=== PATIENT | female | born 1940 | race Hispanic/Latino ===

== ENCOUNTER → 2016-12-28 | Outpatient (REF) | payer OTHER | LOC: M LAB REF 17:11 | PROVIDERS: ATTEND Advanced Practice Midwife | DX: Z12.72 Encounter for screening for malignant neoplasm of vagina (principal) ==

== ENCOUNTER → 2017-04-27 | Outpatient (REF) | payer OTHER ==
[~2017-04-27] MED LIST: METF500T PO
[2017-04-27 13:06] LABS: ALBUMIN 3.6 GM/DL (3.2-5.2); ALKALINE PHOSPHATASE 70 U/L (45-117); ALT/SGPT 29 U/L (12-78); ANION GAP 5 MEQ/L (8-16); AST/SGOT 22 U/L (15-37); BILIRUBIN,TOTAL 0.5 MG/DL (0.2-1.0); BLOOD UREA NITROGEN 19 MG/DL (7-18); CALCIUM LEVEL 8.5 MG/DL (8.8-10.2); CARBON DIOXIDE LEVEL 30 MEQ/L (21-32); CHLORIDE LEVEL 104 MEQ/L (98-107); CHOLESTEROL LEVEL 177 MG/DL (<200); CREATININE FOR GFR 0.49 MG/DL (0.55-1.02); GLOMERULAR FILTRATION RATE > 60.0 (>39); GLUCOSE, FASTING 110 MG/DL (83-110); SODIUM LEVEL 139 MEQ/L (136-145); TOTAL PROTEIN 7.6 GM/DL (6.4-8.2); TRIGLYCERIDES LEVEL 130 MG/DL (<150)
== END ==
LOC: M LABDRAW1 11:28
PROVIDERS: ATTEND Nurse Practitioner Family
DX: E11.9 Type 2 diabetes mellitus without complications (principal); E55.9 Vitamin D deficiency, unspecified; E78.00 Pure hypercholesterolemia, unspecified

== ENCOUNTER 2017-05-06 11:33 | Emergency (ER) | payer OTHER ==
[~2017-05-06] VITALS: Ht 152.4 cm; Wt 69.4 kg
[2017-05-06] MEDS ORDERED: METF500T PO (12:03)
[2017-05-06 13:12] LABS: BASO % 0.4 % (0.0-1.0); EOS # 0.1 K/mm3 (0.0-0.50); EOS % 1.5 % (0.0-3.0); LARGE UNSTAINED CELL # 0.1 K/mm3 (0.0-0.4); LARGE UNSTAINED CELL % 3.1 % (0.0-4.0); LYMPH # 1.2 K/mm3 (1.5-4.5); LYMPH % 28.1 % (24.0-44.0); MEAN CORPUSCULAR HEMOGLOBIN 30.5 pg (27.0-33.0); MEAN CORPUSCULAR VOLUME 92.4 fl (80.0-96.0); MONO # 0.2 K/mm3 (0.0-0.8); NEUTROPHILS # 2.4 K/mm3 (1.8-7.7); NEUTROPHILS % 61.9 % (36.0-66.0); PLATELET COUNT, AUTOMATED 179 k/mm3 (150-450); RED CELL DISTRIBUTION WIDTH 13.2 % (11.5-14.5); WHITE BLOOD COUNT 3.9 K/mm3 (4.0-10.0)
[2017-05-06 13:31] LABS: ANION GAP 4 MEQ/L (8-16); BLOOD UREA NITROGEN 14 MG/DL (7-18); CARBON DIOXIDE LEVEL 31 MEQ/L (21-32); CHLORIDE LEVEL 102 MEQ/L (98-107); CREATININE FOR GFR 0.54 MG/DL (0.55-1.02); GLOMERULAR FILTRATION RATE > 60.0 (>39); GLUCOSE, FASTING 124 MG/DL (83-110); POTASSIUM SERUM 3.9 MEQ/L (3.5-5.1); SODIUM LEVEL 137 MEQ/L (136-145)
[2017-05-06 13:32] LABS: ALT/SGPT 30 U/L (12-78); AST/SGOT 20 U/L (15-37); CALCIUM LEVEL 8.6 MG/DL (8.8-10.2)
--- NOTE | 2017-05-06 13:34 | REP ---
CT Head without contrast HISTORY: Vertigo COMPARISON: None There is no intraparenchymal hemorrhage, acute infarct, mass or midline shift. The ventricular system and cortical sulci are dilated consistent with minimal volume loss. There is no extra cerebral collection. There is no fracture. The visualized sinuses are clear. IMPRESSION: Minimal volume loss. Signed by Cedrick Lawson MD 05/06/2017 01:27 P
[2017-05-06 13:43] LABS: ALKALINE PHOSPHATASE 69 U/L (45-117)
[2017-05-06 13:44] LABS: ALBUMIN 3.4 GM/DL (3.2-5.2); ALBUMIN/GLOBULIN RATIO 0.79 (1.00-1.93); BILIRUBIN,TOTAL 0.5 MG/DL (0.2-1.0); MAGNESIUM LEVEL 1.9 MG/DL (1.8-2.4); T UPTAKE 34 % (30-39); THYROXINE (T4) 8.8 UG/DL (4.5-12.0); TOTAL PROTEIN 7.7 GM/DL (6.4-8.2)
--- NOTE | 2017-05-06 13:44 | REP ---
LEFT SHOULDER, THREE VIEWS: HISTORY: Pain. COMPARISON: 02/25/2016. There is no acute fracture or dislocation. There is narrowing of the joint spaces. IMPRESSION: Degenerative change as described above. Signed by Cedrick Lawson MD 05/06/2017 01:46 P
[2017-05-06 15:10] VITALS: BP 147/71
--- NOTE | 2017-05-07 11:54 | ECGEPIP ---
Stationary ECG Study [facility] - ED Test Date: 2017-05-06 Pat Name: ALEXEY MUÑIZ Department: Room: - Gender: F Energy Specialist: kuldeep : 1940 Requested By: SONIA SIMPSON Order Number: [id number] Reading MD: Joyce Garcia Measurements Intervals [place] Rate: 79 P: 61 HI: 190 QRS: 5 QRSD: 105 T: 25 QT: 372 QTc: 427 Interpretive Statements SINUS RHYTHM NSTTW ABNORMALITY PRWP NO PRIOR FOR COMPARISON Electronically Signed On 05-07-2017 11:54:14 EDT by Joyce Garcia
== END 2017-05-06 15:30 | disposition home or self-care (01) ==
LOC: M ED 13:09
DX: R41.0 Disorientation, unspecified (principal); I10 Essential (primary) hypertension; E11.9 Type 2 diabetes mellitus without complications; Z88.0 Allergy status to penicillin; Z79.899 Other long term (current) drug therapy

== ENCOUNTER → 2017-09-14 | Outpatient (REF) | payer OTHER ==
[~2017-09-14] MED LIST changes: -METF500T PO; +METF500T13 PO
[2017-09-14 14:51] LABS: ALBUMIN 3.6 GM/DL (3.2-5.2); ALKALINE PHOSPHATASE 71 U/L (45-117); ALT/SGPT 28 U/L (12-78); ANION GAP 4 MEQ/L (8-16); AST/SGOT 18 U/L (15-37); BILIRUBIN,TOTAL 0.5 MG/DL (0.2-1.0); BLOOD UREA NITROGEN 18 MG/DL (7-18); CALCIUM LEVEL 9.2 MG/DL (8.8-10.2); CARBON DIOXIDE LEVEL 32 MEQ/L (21-32); CHLORIDE LEVEL 105 MEQ/L (98-107); CHOLESTEROL LEVEL 137 MG/DL (<200); CREATININE FOR GFR 0.47 MG/DL (0.55-1.02); GLOMERULAR FILTRATION RATE > 60.0 (>39); GLUCOSE, FASTING 124 MG/DL (83-110); POTASSIUM SERUM 4.3 MEQ/L (3.5-5.1); SODIUM LEVEL 141 MEQ/L (136-145); TOTAL PROTEIN 7.6 GM/DL (6.4-8.2); TRIGLYCERIDES LEVEL 130 MG/DL (<150)
== END ==
LOC: M LABDRAW1 10:51
PROVIDERS: ATTEND Nurse Practitioner Family
DX: E11.9 Type 2 diabetes mellitus without complications (principal)

== ENCOUNTER → 2017-09-21 | Outpatient (CLI) | payer OTHER ==
--- NOTE | 2017-09-21 10:31 | REP ---
ULTRASOUND LEFT UPPER ARM: Real-time sonographic evaluation of the left upper arm performed in the region of the palpable abnormality. There is a hyperechoic area measuring 3 mm in diameter in the superficial soft tissues which may represent a small lipoma. There is no other evidence of cystic or solid nodule in this region. Signed by Poncho Bell MD 09/22/2017 04:23 P
== END ==
LOC: M RAD 09:40
PROVIDERS: ATTEND Nurse Practitioner Family
DX: D17.22 Benign lipomatous neoplasm of skin and subcutaneous tissue of left arm (principal)

== ENCOUNTER → 2017-12-14 | Outpatient (REF) | payer OTHER ==
[2017-12-14 14:59] LABS: ESTIMATED AVERAGE GLUCOSE 160 MG/DL (60-110); HEMOGLOBIN A1c 7.2 %
== END ==
LOC: M LAB REF 13:25
DX: E11.9 Type 2 diabetes mellitus without complications (principal)

== ENCOUNTER → 2017-12-16 | Outpatient (REF) | payer OTHER, MEDICAID ==
[2017-12-16 14:20] LABS: MALB URINE SIEMENS 7.9 MG/L; MAU/CREAT RATIO 5.6 MCG/MG (0.0-30.0)
== END ==
LOC: M LAB REF 13:06
DX: E11.9 Type 2 diabetes mellitus without complications (principal)
CPT/HCPCS: 82043

== ENCOUNTER 2019-02-26 13:06 | Emergency (ER) | payer MEDICARE, MEDICAID ==
[~2019-02-26] VITALS: Ht 154.9 cm; Wt 70.5 kg
[2019-02-26] MEDS ORDERED: METF-839 (13:15)
[2019-02-26] MEDS ORDERED: ATOR1TAB19 (13:15)
[2019-02-26] MEDS ORDERED: AMLO5TAB6 (13:15)
[2019-02-26] MEDS ORDERED: NS 1,000 ML IV ONE (13:45)
[2019-02-26 13:46] LABS: BASO % 0.4 % (0.0-1.0); EOS # 0.1 10^3/uL (0.0-0.50); EOS % 1.3 % (0.0-3.0); HEMOGLOBIN 13.7 g/dl (12.0-15.5); LYMPH # 1.5 10^3/uL (1.5-4.5); LYMPH % 33.9 % (24.0-44.0); MEAN CORPUSCULAR HEMOGLOBIN 29.9 pg (27.0-33.0); MEAN CORPUSCULAR HGB CONC 32.6 g/dl (32.0-36.5); MEAN CORPUSCULAR VOLUME 91.7 fl (80.0-96.0); MONO # 0.4 10^3/uL (0.0-0.8); NEUTROPHILS # 2.5 10^3/uL (1.8-7.7); NEUTROPHILS % 56.2 % (36.0-66.0); PLATELET COUNT, AUTOMATED 207 10^3/uL (150-450); RED BLOOD COUNT 4.58 10^6/uL (4.00-5.40); WHITE BLOOD COUNT 4.5 10^3/uL (4.0-10.0)
[2019-02-26 13:56] LABS: BLOOD UREA NITROGEN 15 MG/DL (7-18); C REACTIVE PROTEIN QUANTITATIV 0.52 MG/DL (0.00-0.30); CALCIUM LEVEL 9.1 MG/DL (8.8-10.2); CARBON DIOXIDE LEVEL 30 MEQ/L (21-32); CHLORIDE LEVEL 103 MEQ/L (98-107); CREATININE FOR GFR 0.66 MG/DL (0.55-1.30); GLOMERULAR FILTRATION RATE > 60.0 (>39); GLUCOSE, FASTING 168 MG/DL (70-100); POTASSIUM SERUM 4.1 MEQ/L (3.5-5.1); SODIUM LEVEL 138 MEQ/L (136-145)
--- NOTE | 2019-02-26 14:01 | REP ---
Clinical: Headache. Comparison: 05/06/2017 . Findings: Age-related atrophy and microvascular ischemic changes are appreciated. The ventricles and sulci are symmetric. Bell-white differentiation is maintained. There is no evidence for acute intracranial hemorrhage, mass/mass effect, pathology or infarction. No extra-axial fluid collection. Calvarium is intact. Paranasal sinuses and mastoid air cells are clear. Impression: Age related atrophy and microvascular ischemic changes. No acute intracranial hemorrhage, infarction, or mass/mass effect. Electronically Signed by Louie Robles MD 02/26/2019 01:53 P
[2019-02-26 14:05] LABS: ERYTHROCYTE SEDIMENTATION RATE 40 mm/hr (0-30)
--- NOTE | 2019-02-26 14:08 | REP ---
Clinical: Acute chest pain . Comparison: 02/27/2016 . Technique: PA and lateral. Findings: The mediastinum and cardiac silhouette are normal. The lung reyes demonstrate chronic stable changes without acute consolidation, effusion, or pneumothorax. The skeletal structures are intact and normal. Impression: 1. No acute cardiopulmonary process. Electronically Signed by Louie Robles MD 02/26/2019 02:00 P
[2019-02-26 14:28] LABS: INFLUENZA A AMPLIFICATION NEGATIVE (NEGATIVE); INFLUENZA B AMPLIFICATION NEGATIVE (NEGATIVE)
[2019-02-26] MEDS ORDERED: KETOROLAC 30 MG/ML VIAL (J1885) IV ONE (15:00)
[2019-02-26] MEDS ORDERED: CYCLOBENZAPRINE 5MG TABLET PO ONE (16:30)
[2019-02-26] MEDS ORDERED: CYCL5TAB PO (16:30)
[2019-02-26] MEDS ORDERED: IBUP-1114 PO (16:30)
[2019-02-26 16:36] VITALS: BP 168/88
--- NOTE | 2019-02-26 19:14 | ECGEPIP ---
Stationary ECG Study [facility] - ED Test Date: 2019-02-26 Pat Name: ALEXEY MUÑIZ Department: Room: - Gender: F Narcotics Agent: MK : 1940 Requested By: Anjana Heart Order Number: [id number] Reading MD: Anjana Heart Measurements Intervals [facility] Rate: 105 P: 59 DC: 160 QRS: 0 QRSD: 100 T: 35 QT: 330 QTc: 437 Interpretive Statements SINUS TACHYCARDIA ANTEROSEPTAL PR AGE UNDETERMINED POSSIBLE INFERIOR WALL PR AGE UNDETERMINED NONSPECIFIC ST T WAVE CHANGES ABNORMAL RHYTHM ECG CW 05/06/[address] T WAVE CHANGES Electronically Signed On 02-26-2019 19:14:12 EDT by Anjana Heart
== END 2019-02-26 16:45 | disposition home or self-care (01) ==
LOC: M ED 13:06
DX: M79.10 Myalgia, unspecified site (principal); I45.10 Unspecified right bundle-branch block; R94.31 Abnormal electrocardiogram [ECG] [EKG]; E11.9 Type 2 diabetes mellitus without complications; I10 Essential (primary) hypertension; Z88.0 Allergy status to penicillin; Z79.84 Long term (current) use of oral hypoglycemic drugs; Z79.899 Other long term (current) drug therapy
CPT/HCPCS: 36415; 70450; 71046; 80048; 81001; 85025; 85652; 86140; 87486; 87502; 87581; 87633; 87798; 93005; 96374; 99285; J1885

== ENCOUNTER → 2019-03-30 | Outpatient (REF) | payer MEDICARE, MEDICAID ==
[~2019-03-30] MED LIST changes: +AMLO5TAB6; +ATOR1TAB19; +CYCL5TAB PO; +IBUP-1114 PO; +METF-839
[2019-03-30 13:10] LABS: BASO % 0.4 % (0.0-1.0); EOS # 0.1 10^3/uL (0.0-0.50); HEMATOCRIT 42.5 % (36.0-47.0); HEMOGLOBIN 13.5 g/dl (12.0-15.5); LYMPH # 1.7 10^3/uL (1.5-4.5); LYMPH % 37.2 % (24.0-44.0); MEAN CORPUSCULAR HEMOGLOBIN 29.9 pg (27.0-33.0); MEAN CORPUSCULAR HGB CONC 31.8 g/dl (32.0-36.5); MEAN CORPUSCULAR VOLUME 94.2 fl (80.0-96.0); MONO # 0.4 10^3/uL (0.0-0.8); NEUTROPHILS # 2.4 10^3/uL (1.8-7.7); NEUTROPHILS % 52.2 % (36.0-66.0); PLATELET COUNT, AUTOMATED 225 10^3/uL (150-450); RED BLOOD COUNT 4.51 10^6/uL (4.00-5.40); WHITE BLOOD COUNT 4.5 10^3/uL (4.0-10.0)
[2019-03-30 13:40] LABS: ALBUMIN 3.9 GM/DL (3.2-5.2); ALT/SGPT 26 U/L (12-78); BILIRUBIN,TOTAL 0.8 MG/DL (0.2-1.0); BLOOD UREA NITROGEN 17 MG/DL (7-18); CALCIUM LEVEL 8.8 MG/DL (8.8-10.2); CARBON DIOXIDE LEVEL 31 MEQ/L (21-32); CHLORIDE LEVEL 104 MEQ/L (98-107); CHOLESTEROL LEVEL 167 MG/DL (<200); CHOLESTEROL RISK RATIO 4.073 (<5); CREATININE FOR GFR 0.57 MG/DL (0.55-1.30); GLOMERULAR FILTRATION RATE > 60.0 (>39); GLUCOSE, FASTING 150 MG/DL (70-100); HDL CHOLESTEROL 41 MG/DL (>40); LDL CHOLESTEROL 93 MG/DL (<100); NON-HDL-C 126 MG/DL; POTASSIUM SERUM 4.1 MEQ/L (3.5-5.1); SODIUM LEVEL 139 MEQ/L (136-145); TOTAL PROTEIN 7.9 GM/DL (6.4-8.2); TRIGLYCERIDES LEVEL 165 MG/DL (<150)
[2019-03-30 13:53] LABS: TOTAL 25(OH) VITAMIN D 22.9 NG/ML (30.0-100.0)
[2019-03-30 14:14] LABS: HEMOGLOBIN A1c 7.6 %
[2019-04-02 00:07] LABS: Lyme Disease IgG/IgM Antibodie <0.91 ISR (0.00-0.90); Lyme Disease IgM Ab Quantitati <0.80 index (0.00-0.79)
== END ==
LOC: M LAB REF 12:53
PROVIDERS: ATTEND Family Medicine
DX: Z13.228 Encounter for screening for other metabolic disorders (principal); E07.9 Disorder of thyroid, unspecified; E78.00 Pure hypercholesterolemia, unspecified; R73.01 Impaired fasting glucose

== ENCOUNTER → 2019-04-25 | Outpatient (CLI) | payer MEDICARE, MEDICAID ==
--- NOTE | 2019-04-25 13:44 | REP ---
Clinical : Acute pelvic pain. Technique: Transabdominal pelvic ultrasound using curved array transducer. Findings: Bladder is under distended but grossly normal and currently measuring 6.3 x 4.0 x 3.1 cm. The patient is known to be status post hysterectomy. No pelvic fluid or mass lesion identified. Impression: Evidence for prior hysterectomy and oophorectomy. No pelvic fluid or mass lesion appreciated. Electronically Signed by Louie Robles MD 04/25/2019 01:35 P
== END ==
LOC: M RAD 09:16
PROVIDERS: ATTEND Family Medicine
DX: R10.2 Pelvic and perineal pain (principal); Z90.710 Acquired absence of both cervix and uterus

== ENCOUNTER → 2019-07-03 | Outpatient (REF) | payer MEDICARE, MEDICAID ==
[2019-07-03 13:18] LABS: APPEARANCE, URINE HAZY (CLEAR); BACTERIA, URINE AUTO 2+ (NEGATIVE); BILIRUBIN, URINE AUTO NEGATIVE (NEGATIVE); BLOOD, URINE BLOOD 2+ (NEGATIVE); COLOR, URINE YELLOW (YELLOW); GLUCOSE, URINE (UA) AUTO NEGATIVE (NEGATIVE); KETONE, URINE AUTO NEGATIVE (NEGATIVE); LEUKOCYTE ESTERASE, URINE AUTO 3+ (NEGATIVE); NITRITE, URINE AUTO NEGATIVE (NEGATIVE); PROTEIN, URINE AUTO 1+ mg/dL (NEGATIVE); RBC, URINE AUTO 40 /HPF (0-3); SPECIFIC GRAVITY URINE AUTO 1.014 (1.002-1.035); SQUAMOUS EPITHELIAL CELL UR AU 6 /HPF (0-6); TRANSITIONAL EPITHELIAL AUTO 1 /HPF; UROBILINOGEN, URINE AUTO 0.2 mg/dL (0.0-2.0); WBC, URINE AUTO 161 /HPF (0-3)
[2019-07-03 16:48] LABS: BASO % 0.5 % (0.0-1.0); EOS # 0.2 10^3/uL (0.0-0.50); HEMATOCRIT 42.7 % (36.0-47.0); HEMOGLOBIN 13.7 g/dl (12.0-15.5); LYMPH # 1.8 10^3/uL (1.5-4.5); LYMPH % 32.1 % (24.0-44.0); MEAN CORPUSCULAR HEMOGLOBIN 30.3 pg (27.0-33.0); MEAN CORPUSCULAR HGB CONC 32.1 g/dl (32.0-36.5); MEAN CORPUSCULAR VOLUME 94.5 fl (80.0-96.0); MONO # 0.4 10^3/uL (0.0-0.8); MONO % 7.5 % (0.0-5.0); NEUTROPHILS # 3.2 10^3/uL (1.8-7.7); NEUTROPHILS % 56.5 % (36.0-66.0); PLATELET COUNT, AUTOMATED 267 10^3/uL (150-450); RED BLOOD COUNT 4.52 10^6/uL (4.00-5.40); WHITE BLOOD COUNT 5.6 10^3/uL (4.0-10.0)
[2019-07-03 17:00] LABS: ALBUMIN 3.7 GM/DL (3.2-5.2); ALT/SGPT 47 U/L (12-78); BILIRUBIN,TOTAL 0.5 MG/DL (0.2-1.0); BLOOD UREA NITROGEN 14 MG/DL (7-18); CALCIUM LEVEL 9.5 MG/DL (8.8-10.2); CARBON DIOXIDE LEVEL 32 MEQ/L (21-32); CHLORIDE LEVEL 104 MEQ/L (98-107); CHOLESTEROL LEVEL 138 MG/DL (<200); CHOLESTEROL RISK RATIO 3.538 (<5); CREATININE FOR GFR 0.55 MG/DL (0.55-1.30); FREE T4 1.01 NG/DL (0.76-1.46); GLOMERULAR FILTRATION RATE > 60.0 (>39); GLUCOSE, FASTING 106 MG/DL (70-100); HDL CHOLESTEROL 39 MG/DL (>40); LDL CHOLESTEROL 69 MG/DL (<100); NON-HDL-C 99 MG/DL; POTASSIUM SERUM 4.2 MEQ/L (3.5-5.1); SODIUM LEVEL 139 MEQ/L (136-145); TRIGLYCERIDES LEVEL 150 MG/DL (<150)
[2019-07-03 17:02] LABS: TOTAL 25(OH) VITAMIN D 25.3 NG/ML (30.0-100.0)
[2019-07-05 14:22] LABS: Lyme Disease IgG/IgM Antibodie <0.91 ISR (0.00-0.90); Lyme Disease IgM Ab Quantitati <0.80 index (0.00-0.79)
== END ==
LOC: M LAB REF 12:51
PROVIDERS: ATTEND Family Medicine
DX: Z13.228 Encounter for screening for other metabolic disorders (principal)

== ENCOUNTER → 2019-07-10 | Outpatient (REF) | payer MEDICARE, MEDICAID ==
[2019-07-10 18:19] LABS: APPEARANCE, URINE TURBID (CLEAR); BACTERIA, URINE AUTO 3+ (NEGATIVE); BILIRUBIN, URINE AUTO NEGATIVE (NEGATIVE); BLOOD, URINE BLOOD 2+ (NEGATIVE); COLOR, URINE AMBER (YELLOW); GLUCOSE, URINE (UA) AUTO NEGATIVE (NEGATIVE); KETONE, URINE AUTO NEGATIVE (NEGATIVE); LEUKOCYTE ESTERASE, URINE AUTO 3+ (NEGATIVE); MUCUS, URINE MODERATE (NEGATIVE); NITRITE, URINE AUTO NEGATIVE (NEGATIVE); PROTEIN, URINE AUTO NEGATIVE (NEGATIVE); RBC, URINE AUTO 18 /HPF (0-3); SPECIFIC GRAVITY URINE AUTO 1.019 (1.002-1.035); SQUAMOUS EPITHELIAL CELL UR AU 1 /HPF (0-6); UROBILINOGEN, URINE AUTO 0.2 mg/dL (0.0-2.0); WBC, URINE AUTO 86 /HPF (0-3)
== END ==
LOC: M LAB REF 17:03
PROVIDERS: ATTEND Family Medicine
DX: R82.998 Other abnormal findings in urine (principal)

== ENCOUNTER → 2019-10-10 | Outpatient (REF) | payer MEDICARE, MEDICAID ==
[2019-10-10 12:54] LABS: ALBUMIN 3.5 GM/DL (3.2-5.2); ALT/SGPT 32 U/L (12-78); BILIRUBIN,TOTAL 0.4 MG/DL (0.2-1.0); BLOOD UREA NITROGEN 15 MG/DL (7-18); CALCIUM LEVEL 9.1 MG/DL (8.8-10.2); CARBON DIOXIDE LEVEL 33 MEQ/L (21-32); CHLORIDE LEVEL 108 MEQ/L (98-107); CHOLESTEROL LEVEL 148 MG/DL (<200); CHOLESTEROL RISK RATIO 3.894 (<5); CREATININE FOR GFR 0.55 MG/DL (0.55-1.30); GLOMERULAR FILTRATION RATE > 60.0 (>39); GLUCOSE, FASTING 106 MG/DL (70-100); HDL CHOLESTEROL 38 MG/DL (>40); LDL CHOLESTEROL 85 MG/DL (<100); NON-HDL-C 110 MG/DL; POTASSIUM SERUM 4.1 MEQ/L (3.5-5.1); SODIUM LEVEL 142 MEQ/L (136-145); TOTAL PROTEIN 7.8 GM/DL (6.4-8.2); TRIGLYCERIDES LEVEL 127 MG/DL (<150)
[2019-10-10 13:19] LABS: CREATININE, URINE 72.7 MG/DL; MALB URINE SIEMENS 19.5 MG/L; MAU/CREAT RATIO 26.8 MCG/MG (0.0-30.0)
[2019-10-10 13:31] LABS: HEMOGLOBIN A1c 6.8 %
== END ==
LOC: M LAB REF 12:01
PROVIDERS: ATTEND Family Medicine
DX: E11.9 Type 2 diabetes mellitus without complications (principal)

== ENCOUNTER → 2020-02-07 | Outpatient (CLI) | payer MEDICARE, MEDICAID ==
[2020-02-07 09:44] LABS: MALB URINE SIEMENS 16.2 MG/L; MAU/CREAT RATIO 13.9 MCG/MG (0.0-30.0)
== END ==
LOC: M LAB 08:36
PROVIDERS: ATTEND Family Medicine
DX: E11.9 Type 2 diabetes mellitus without complications (principal)

== ENCOUNTER → 2020-02-08 | Outpatient (REF) | payer MEDICARE, MEDICAID ==
[2020-02-08 14:45] LABS: APPEARANCE, URINE HAZY (CLEAR); BILIRUBIN, URINE AUTO NEGATIVE (NEGATIVE); BLOOD, URINE BLOOD NEGATIVE (NEGATIVE); COLOR, URINE YELLOW (YELLOW); GLUCOSE, URINE (UA) AUTO NEGATIVE (NEGATIVE); KETONE, URINE AUTO NEGATIVE (NEGATIVE); LEUKOCYTE ESTERASE, URINE AUTO NEGATIVE (NEGATIVE); NITRITE, URINE AUTO POSITIVE (NEGATIVE); PROTEIN, URINE AUTO NEGATIVE (NEGATIVE); UROBILINOGEN, URINE AUTO 0.2 mg/dL (0.0-2.0)
[2020-02-08 14:46] LABS: BACTERIA, URINE AUTO 2+ (NEGATIVE); CALCIUM OXALATE CRYSTALS SMALL; RBC, URINE AUTO 1 /HPF (0-3); SQUAMOUS EPITHELIAL CELL UR AU 0 /HPF (0-6); WBC, URINE AUTO 8 /HPF (0-3)
== END ==
LOC: M LAB REF 13:14
PROVIDERS: ATTEND Nurse Practitioner Family
DX: R30.0 Dysuria (principal); N39.0 Urinary tract infection, site not specified

== ENCOUNTER → 2020-02-12 | Outpatient (REF) | payer MEDICARE, MEDICAID ==
[2020-02-12 13:04] LABS: BASO % 0.4 % (0.0-1.0); EOS # 0.1 10^3/uL (0.0-0.5); EOS % 2.7 % (0.0-3.0); HEMATOCRIT 42.4 % (36.0-47.0); HEMOGLOBIN 13.3 g/dl (12.0-15.5); LYMPH # 1.7 10^3/uL (1.5-5.0); LYMPH % 34.6 % (24.0-44.0); MEAN CORPUSCULAR HEMOGLOBIN 29.2 pg (27.0-33.0); MEAN CORPUSCULAR HGB CONC 31.4 g/dl (32.0-36.5); MONO # 0.5 10^3/uL (0.0-0.8); MONO % 9.5 % (0.0-5.0); NEUTROPHILS # 2.5 10^3/uL (1.5-8.5); NEUTROPHILS % 52.6 % (36.0-66.0); PLATELET COUNT, AUTOMATED 208 10^3/uL (150-450); RED BLOOD COUNT 4.56 10^6/uL (4.00-5.40); WHITE BLOOD COUNT 4.8 10^3/uL (4.0-10.0)
[2020-02-12 13:17] LABS: ALBUMIN 3.6 GM/DL (3.2-5.2); ALT/SGPT 24 U/L (12-78); BILIRUBIN,TOTAL 0.7 MG/DL (0.2-1.0); BLOOD UREA NITROGEN 16 MG/DL (7-18); CALCIUM LEVEL 9.4 MG/DL (8.8-10.2); CARBON DIOXIDE LEVEL 32 MEQ/L (21-32); CHLORIDE LEVEL 106 MEQ/L (98-107); CHOLESTEROL LEVEL 168 MG/DL (<200); CREATININE FOR GFR 0.52 MG/DL (0.55-1.30); FOLATE 23.6 NG/ML; FREE T4 1.08 NG/DL (0.76-1.46); GLOMERULAR FILTRATION RATE > 60.0 (>32); GLUCOSE, FASTING 114 MG/DL (70-100); HDL CHOLESTEROL 40 MG/DL (>40); LDL CHOLESTEROL 106 MG/DL (<100); MAGNESIUM LEVEL 2.2 MG/DL (1.8-2.4); NON-HDL-C 128 MG/DL; SODIUM LEVEL 140 MEQ/L (136-145); TOTAL 25(OH) VITAMIN D 28.7 NG/ML (30.0-100.0); TOTAL PROTEIN 7.8 GM/DL (6.4-8.2); TRIGLYCERIDES LEVEL 112 MG/DL (<150); VITAMIN B12 LEVEL 1013 PG/ML
[2020-02-12 14:38] LABS: HEMOGLOBIN A1c 7.1 %
== END ==
LOC: M LAB REF 12:46
PROVIDERS: ATTEND Nurse Practitioner Family
DX: R30.0 Dysuria (principal); E53.8 Deficiency of other specified B group vitamins; D51.8 Other vitamin B12 deficiency anemias; E55.9 Vitamin D deficiency, unspecified; E11.9 Type 2 diabetes mellitus without complications; I10 Essential (primary) hypertension; E66.3 Overweight; E78.5 Hyperlipidemia, unspecified; Z79.899 Other long term (current) drug therapy

== ENCOUNTER → 2020-06-24 | Outpatient (REF) | payer MEDICARE, MEDICAID ==
[~2020-06-24] MED LIST changes: +AMLO1TAB24; -AMLO5TAB6
[2020-07-19 20:39] LABS: BASO % 0.4 % (0.0-1.0); EOS # 0.1 10^3/uL (0.0-0.5); EOS % 1.9 % (0.0-3.0); HEMATOCRIT 44.2 % (36.0-47.0); HEMOGLOBIN 13.8 g/dl (12.0-15.5); LYMPH # 2.2 10^3/uL (1.5-5.0); LYMPH % 42.1 % (24.0-44.0); MEAN CORPUSCULAR HEMOGLOBIN 29.6 pg (27.0-33.0); MEAN CORPUSCULAR HGB CONC 31.2 g/dl (32.0-36.5); MEAN CORPUSCULAR VOLUME 94.8 fl (80.0-96.0); MONO # 0.5 10^3/uL (0.0-0.8); MONO % 8.7 % (0.0-5.0); NEUTROPHILS # 2.4 10^3/uL (1.5-8.5); NEUTROPHILS % 46.7 % (36.0-66.0); PLATELET COUNT, AUTOMATED 205 10^3/uL (150-450); RED BLOOD COUNT 4.66 10^6/uL (4.00-5.40); WHITE BLOOD COUNT 5.2 10^3/uL (4.0-10.0)
[2020-07-26 10:04] LABS: ALBUMIN 3.7 GM/DL (3.2-5.2); ALT/SGPT 30 U/L (12-78); BILIRUBIN,TOTAL 0.4 MG/DL (0.2-1.0); BLOOD UREA NITROGEN 17 MG/DL (7-18); CALCIUM LEVEL 9.6 MG/DL (8.8-10.2); CARBON DIOXIDE LEVEL 31 MEQ/L (21-32); CHLORIDE LEVEL 105 MEQ/L (98-107); CHOLESTEROL LEVEL 170 MG/DL (<200); CHOLESTEROL RISK RATIO 4.047 (<5); CREATININE FOR GFR 0.61 MG/DL (0.55-1.30); FOLATE 14.5 NG/ML (>5.4); GLOMERULAR FILTRATION RATE > 60.0 (>32); GLUCOSE, FASTING 113 MG/DL (70-100); HDL CHOLESTEROL 42 MG/DL (>40); IRON (FE) 65 UG/DL (50-170); LDL CHOLESTEROL 102 MG/DL (<100); NON-HDL-C 128 MG/DL; SODIUM LEVEL 142 MEQ/L (136-145); TOTAL PROTEIN 7.9 GM/DL (6.4-8.2); TRIGLYCERIDES LEVEL 132 MG/DL (<150); VITAMIN B12 LEVEL 859 PG/ML (247-911)
[2020-07-26 10:33] LABS: HEMOGLOBIN A1c 6.4 %
== END ==
LOC: M LAB REF 14:03
PROVIDERS: ATTEND Nurse Practitioner Family
DX: K59.00 Constipation, unspecified (principal); E53.8 Deficiency of other specified B group vitamins; E11.8 Type 2 diabetes mellitus with unspecified complications; I10 Essential (primary) hypertension

== ENCOUNTER 2020-07-10 11:15 | Emergency (ER) | payer MEDICARE, MEDICAID ==
[~2020-07-10 11:15] MED LIST changes: +NORCO, ANEXSIA 5/325MG TABLET (HYDROcodone/ACETAMINOPHEN) ONE
[2020-07-10] MEDS ORDERED: KETOROLAC 30 MG/ML 1ML VIAL ONE (13:14)
[2020-08-28 20:54] LABS: BASO % 0.4 % (0.0-1.0); EOS # 0.1 10^3/uL (0.0-0.5); EOS % 1.7 % (0.0-3.0); ERYTHROCYTE SEDIMENTATION RATE 29 mm/hr (0-30); HEMATOCRIT 44.4 % (36.0-47.0); HEMOGLOBIN 14.1 g/dl (12.0-15.5); LYMPH # 1.3 10^3/uL (1.5-5.0); LYMPH % 28.1 % (24.0-44.0); MEAN CORPUSCULAR HEMOGLOBIN 29.7 pg (27.0-33.0); MEAN CORPUSCULAR HGB CONC 31.8 g/dl (32.0-36.5); MEAN CORPUSCULAR VOLUME 93.7 fl (80.0-96.0); MONO # 0.4 10^3/uL (0.0-0.8); MONO % 8.1 % (0.0-5.0); NEUTROPHILS # 2.9 10^3/uL (1.5-8.5); NEUTROPHILS % 61.5 % (36.0-66.0); PLATELET COUNT, AUTOMATED 192 10^3/uL (150-450); RED BLOOD COUNT 4.74 10^6/uL (4.00-5.40); WHITE BLOOD COUNT 4.7 10^3/uL (4.0-10.0)
[2020-10-02 05:01] LABS: BLOOD UREA NITROGEN 17 MG/DL (7-18); C REACTIVE PROTEIN QUANTITATIV 0.52 MG/DL (0.00-0.30); CARBON DIOXIDE LEVEL 32 MEQ/L (21-32); CHLORIDE LEVEL 106 MEQ/L (98-107); CREATININE FOR GFR 0.48 MG/DL (0.55-1.30); GLOMERULAR FILTRATION RATE > 60.0 (>32); GLUCOSE, FASTING 120 MG/DL (70-100); SODIUM LEVEL 139 MEQ/L (136-145); URIC ACID 2.2 MG/DL (2.6-6.0)
== END 2020-07-10 13:40 | disposition home or self-care (01) ==
LOC: M ED 11:15
DX: M25.522 Pain in left elbow (principal); E11.9 Type 2 diabetes mellitus without complications; R22.32 Localized swelling, mass and lump, left upper limb; I10 Essential (primary) hypertension; F17.210 Nicotine dependence, cigarettes, uncomplicated; Z88.0 Allergy status to penicillin; Z79.899 Other long term (current) drug therapy
CPT/HCPCS: 73080; 80048; 84550; 85025; 85652; 86140; 93971; 96374; 99284; J1885

== ENCOUNTER → 2020-10-08 | Outpatient (REF) | payer MEDICARE, MEDICAID ==
[~2020-10-08] MED LIST changes: -NORCO, ANEXSIA 5/325MG TABLET (HYDROcodone/ACETAMINOPHEN) ONE
[2020-10-08 13:13] LABS: BASO % 0.4 % (0.0-1.0); EOS # 0.1 10^3/uL (0.0-0.5); EOS % 1.7 % (0.0-3.0); HEMATOCRIT 45.1 % (36.0-47.0); LYMPH # 2.1 10^3/uL (1.5-5.0); LYMPH % 44.2 % (24.0-44.0); MEAN CORPUSCULAR HEMOGLOBIN 29.3 pg (27.0-33.0); MEAN CORPUSCULAR VOLUME 94.4 fl (80.0-96.0); MONO # 0.5 10^3/uL (0.0-0.8); MONO % 9.4 % (0.0-5.0); NEUTROPHILS # 2.1 10^3/uL (1.5-8.5); NEUTROPHILS % 44.1 % (36.0-66.0); PLATELET COUNT, AUTOMATED 204 10^3/uL (150-450); RED BLOOD COUNT 4.78 10^6/uL (4.00-5.40); WHITE BLOOD COUNT 4.8 10^3/uL (4.0-10.0)
[2020-10-08 13:51] LABS: ALT/SGPT 32 U/L (12-78); BILIRUBIN,TOTAL 0.7 MG/DL (0.2-1.0); BLOOD UREA NITROGEN 17 MG/DL (7-18); CALCIUM LEVEL 9.4 MG/DL (8.8-10.2); CARBON DIOXIDE LEVEL 31 MEQ/L (21-32); CHLORIDE LEVEL 103 MEQ/L (98-107); CREATININE FOR GFR 0.52 MG/DL (0.55-1.30); GLOMERULAR FILTRATION RATE > 60.0 (>32); GLUCOSE, FASTING 123 MG/DL (70-100); SODIUM LEVEL 140 MEQ/L (136-145); TRIGLYCERIDES LEVEL 148 MG/DL (<150)
[2020-10-08 13:52] LABS: ALBUMIN 3.7 GM/DL (3.2-5.2); CHOLESTEROL LEVEL 212 MG/DL (<200); CHOLESTEROL RISK RATIO 4.818 (<5); FERRITIN 40 NG/ML (8-252); HDL CHOLESTEROL 44 MG/DL (>40); IRON (FE) 73 UG/DL (50-170); LDL CHOLESTEROL 138 MG/DL (<100); NON-HDL-C 168 MG/DL; TOTAL PROTEIN 7.9 GM/DL (6.4-8.2)
[2020-10-08 13:55] LABS: HEMOGLOBIN A1c 6.7 %; VITAMIN B12 LEVEL 1188 PG/ML
[2020-10-10 13:08] LABS: FOLATE 16.7 NG/ML
== END ==
LOC: M LAB REF 12:32
PROVIDERS: ATTEND Nurse Practitioner Family
DX: R82.998 Other abnormal findings in urine (principal); D51.8 Other vitamin B12 deficiency anemias; E55.9 Vitamin D deficiency, unspecified; E11.8 Type 2 diabetes mellitus with unspecified complications

== ENCOUNTER → 2021-01-14 | Outpatient (REF) | payer MEDICARE, MEDICAID ==
[2021-01-14 17:04] LABS: BASO % 0.6 % (0.0-1.0); EOS # 0.1 10^3/uL (0.0-0.5); EOS % 2.1 % (0.0-3.0); HEMATOCRIT 45.2 % (36.0-47.0); HEMOGLOBIN 14.2 g/dl (12.0-15.5); LYMPH # 1.7 10^3/uL (1.5-5.0); LYMPH % 36.3 % (24.0-44.0); MEAN CORPUSCULAR HEMOGLOBIN 29.5 pg (27.0-33.0); MEAN CORPUSCULAR HGB CONC 31.4 g/dl (32.0-36.5); MONO # 0.5 10^3/uL (0.0-0.8); MONO % 9.4 % (2.0-8.0); NEUTROPHILS # 2.5 10^3/uL (1.5-8.5); NEUTROPHILS % 51.4 % (36.0-66.0); PLATELET COUNT, AUTOMATED 211 10^3/uL (150-450); RED BLOOD COUNT 4.81 10^6/uL (4.00-5.40); WHITE BLOOD COUNT 4.8 10^3/uL (4.0-10.0)
[2021-01-14 17:09] LABS: ALBUMIN 3.9 GM/DL (3.2-5.2); ALT/SGPT 36 U/L (12-78); BILIRUBIN,TOTAL 0.6 MG/DL (0.2-1.0); BLOOD UREA NITROGEN 18 MG/DL (7-18); CALCIUM LEVEL 9.6 MG/DL (8.8-10.2); CARBON DIOXIDE LEVEL 32 MEQ/L (21-32); CHLORIDE LEVEL 104 MEQ/L (98-107); CHOLESTEROL LEVEL 181 MG/DL (<200); CHOLESTEROL RISK RATIO 4.414 (<5); CREATININE FOR GFR 0.62 MG/DL (0.55-1.30); FERRITIN 40 NG/ML (8-252); FREE T4 1.11 NG/DL (0.76-1.46); GLOMERULAR FILTRATION RATE > 60.0 (>32); GLUCOSE, FASTING 143 MG/DL (70-100); HDL CHOLESTEROL 41 MG/DL (>40); IRON (FE) 67 UG/DL (50-170); LDL CHOLESTEROL 114 MG/DL (<100); MAGNESIUM LEVEL 2.1 MG/DL (1.8-2.4); NON-HDL-C 140 MG/DL; PERCENT SATURATION 22.5 % (13.2-45.0); POTASSIUM SERUM 4.6 MEQ/L (3.5-5.1); SODIUM LEVEL 141 MEQ/L (136-145); TOTAL IRON BINDING CAPACITY 298 UG/DL (250-450); TOTAL PROTEIN 8.1 GM/DL (6.4-8.2); TRIGLYCERIDES LEVEL 130 MG/DL (<150)
[2021-01-14 17:10] LABS: TOTAL 25(OH) VITAMIN D 24.6 NG/ML (30.0-100.0); VITAMIN B12 LEVEL > 2000 PG/ML
[2021-01-14 17:11] LABS: FOLATE 19.3 NG/ML
[2021-01-14 17:27] LABS: HEMOGLOBIN A1c 6.9 %
== END ==
LOC: M LAB REF 16:29
PROVIDERS: ATTEND Nurse Practitioner Family
DX: E66.9 Obesity, unspecified (principal); I10 Essential (primary) hypertension; E78.5 Hyperlipidemia, unspecified; D50.9 Iron deficiency anemia, unspecified

== ENCOUNTER → 2021-01-21 | Outpatient (REF) | payer MEDICARE, MEDICAID ==
[2021-01-21 12:06] LABS: APPEARANCE, URINE HAZY (CLEAR); BACTERIA, URINE AUTO NEGATIVE (NEGATIVE); BILIRUBIN, URINE AUTO NEGATIVE (NEGATIVE); BLOOD, URINE BLOOD NEGATIVE (NEGATIVE); COLOR, URINE YELLOW (YELLOW); GLUCOSE, URINE (UA) AUTO NEGATIVE (NEGATIVE); KETONE, URINE AUTO NEGATIVE (NEGATIVE); LEUKOCYTE ESTERASE, URINE AUTO NEGATIVE (NEGATIVE); MUCUS, URINE SMALL (NEGATIVE); NITRITE, URINE AUTO NEGATIVE (NEGATIVE); PROTEIN, URINE AUTO NEGATIVE (NEGATIVE); RBC, URINE AUTO 0 /HPF (0-3); SQUAMOUS EPITHELIAL CELL UR AU 1 /HPF (0-6); UROBILINOGEN, URINE AUTO 0.2 mg/dL (0.0-2.0); WBC, URINE AUTO 1 /HPF (0-3)
== END ==
LOC: M LAB REF 11:16
PROVIDERS: ATTEND Nurse Practitioner Family
DX: N39.0 Urinary tract infection, site not specified (principal)

== ENCOUNTER 2021-05-11 16:38 | Emergency (ER) | payer MEDICARE, MEDICAID ==
[~2021-05-11] VITALS: Ht 154.9 cm; Wt 69.1 kg
[2021-05-11] MEDS ORDERED: MECL-86 PO (16:47)
[2021-05-11] MEDS ORDERED: TRUL10IN SQ (16:47)
[2021-05-11] MEDS ORDERED: NORCO, ANEXSIA 5/325MG TABLET (HYDROcodone/ACETAMINOPHEN) PO ONE (18:15)
--- NOTE | 2021-05-11 19:26 | REP ---
INDICATION: trauma. COMPARISON: None. TECHNIQUE: Four views of the left calf are obtained. FINDINGS: Four views of the left tib fib demonstrate mild diffuse subcutaneous soft tissue swelling. There is diffuse osteopenia. Osteoarthritic changes are seen in the medial and patellofemoral compartments of the knee. There is mild diffuse osteopenia. There is a small Achilles calcaneal spur.. No fracture or subluxation is seen. No opaque foreign body noted. IMPRESSION: Diffuse osteopenia. Diffuse soft tissue swelling. Heel spur and knee joint osteoarthritis. No fracture seen.. <Electronically signed by Mingo Anderson > 05/11/211922
--- NOTE | 2021-05-11 19:28 | REP ---
INDICATION: trauma. COMPARISON: None. TECHNIQUE: Four views of the right knee are obtained. No sunrise view is obtained. FINDINGS: Four views of the right knee demonstrate moderate osteoarthritis with medial and patellofemoral compartment joint space narrowing and spur formation. There is some osteoarthritic spurring at the lateral compartment as well. There is diffuse osteopenia. There is no evidence of joint effusion. No fracture or subluxation is seen. There is soft tissue swelling at the medial aspect of the knee joint.. . No opaque foreign body noted. IMPRESSION: Moderate 3 compartment osteoarthritis. Medial soft tissue swelling. No traumatic abnormality noted.. <Electronically signed by Mingo Anderson > 05/11/211923
--- NOTE | 2021-05-11 19:46 | REPVR ---
PROCEDURE INFORMATION: Exam: CT Maxillofacial Without Contrast Exam date and time: 05/11/2021 6:40 PM Age: 80 years old Clinical indication: Injury or trauma; Fall; Blunt trauma (contusions or hematomas); Forehead TECHNIQUE: Imaging protocol: Computed tomography images of the face without contrast. Radiation optimization: All CT scans at this facility use at least one of these dose optimization techniques: automated exposure control; mA and/or kV adjustment per patient size (includes targeted exams where dose is matched to clinical indication); or iterative reconstruction. COMPARISON: CT Head without contrast 02/26/2019 1:39 PM FINDINGS: Orbital cavity: No orbital hemorrhage. Bones/joints: No acute fracture. Paranasal sinuses: Normal. No air-fluid levels. Soft tissues: Right lateral facial soft tissue swelling. IMPRESSION: No acute facial bone fracture. Electronically signed by: Sahil Girard On 05/11/2021 19:46:13 PM
--- NOTE | 2021-05-11 19:48 | REPVR ---
PROCEDURE INFORMATION: Exam: CT Head Without Contrast Exam date and time: 05/11/2021 6:40 PM Age: 80 years old Clinical indication: Injury or trauma; Fall; Blunt trauma (contusions or hematomas) TECHNIQUE: Imaging protocol: Computed tomography of the head without contrast. Radiation optimization: All CT scans at this facility use at least one of these dose optimization techniques: automated exposure control; mA and/or kV adjustment per patient size (includes targeted exams where dose is matched to clinical indication); or iterative reconstruction. COMPARISON: CT Head without contrast 02/26/2019 1:39 PM FINDINGS: Brain: Mild age-related volume loss. Mild decreased attenuation of the supratentorial white matter is likely secondary to chronic microvascular ischemia. No acute intracranial hemorrhage, midline shift or intracranial mass effect. Cerebral ventricles: No hydrocephalus. Paranasal sinuses: Visualized sinuses are unremarkable. No fluid levels. Mastoid air cells: Visualized mastoid air cells are well aerated. Bones/joints: Unremarkable. No acute fracture. Soft tissues: Unremarkable. IMPRESSION: No acute intracranial abnormality. Electronically signed by: Sahil Girard On 05/11/2021 19:48:11 PM
--- NOTE | 2021-05-11 20:17 | REPVR ---
PROCEDURE INFORMATION: Exam: CT Chest Without Contrast; Diagnostic Exam date and time: 05/11/2021 6:40 PM Age: 80 years old Clinical indication: Injury or trauma; Fall; Blunt trauma (contusions or hematomas) TECHNIQUE: Imaging protocol: Diagnostic computed tomography of the chest without contrast. 3D rendering (Not supervised by radiologist): MIP and/or 3D reconstructed images were created by the technologist. Radiation optimization: All CT scans at this facility use at least one of these dose optimization techniques: automated exposure control; mA and/or kV adjustment per patient size (includes targeted exams where dose is matched to clinical indication); or iterative reconstruction. COMPARISON: CR Chest, 2 view PA, Lat 02/26/2019 1:51 PM FINDINGS: Lungs: Minimal bilateral lower lobe dependent atelectasis. Pleural spaces: Unremarkable. No pneumothorax. No pleural effusion. Heart: Unremarkable. No cardiomegaly. No pericardial effusion. Mediastinal space: Minimal hiatal hernia. Pulmonary arteries: The main pulmonary artery measures 27 mm. Aorta: The ascending thoracic aorta measures 27 mm Lymph nodes: Unremarkable. No enlarged lymph nodes. Kidneys and ureters: Small nonobstructing right renal calculus. Bones/joints: Mild anterior wedge configuration of T7 which appears to be chronic. Soft tissues: Unremarkable. IMPRESSION: 1. Mild anterior wedge configuration of T7 which appears to be chronic. 2. Small nonobstructing right renal calculus. 3. Otherwise negative CT chest. No acute posttraumatic change is seen. Electronically signed by: Kevin Pineda On 05/11/2021 20:16:53 PM
[2021-05-11] MEDS ORDERED: NORCO 5/325MG TABLET (BULK FOR ED) PO ONE (21:15)
[2021-05-11 22:13] VITALS: BP 139/68
== END 2021-05-11 22:15 | disposition home or self-care (01) ==
LOC: M ED 16:38
DX: S00.83XA Contusion of other part of head, initial encounter (principal); W06.XXXA Fall from bed, initial encounter; Y92.9 Unspecified place or not applicable; Y93.9 Activity, unspecified; Y99.9 Unspecified external cause status; M17.11 Unilateral primary osteoarthritis, right knee; E78.5 Hyperlipidemia, unspecified; I10 Essential (primary) hypertension; E11.9 Type 2 diabetes mellitus without complications; Z88.0 Allergy status to penicillin

== ENCOUNTER → 2021-05-13 | Outpatient (REF) | payer MEDICARE, MEDICAID ==
[~2021-05-13] MED LIST changes: +MECL-86 PO; +TRUL10IN SQ
[2021-05-13 17:47] LABS: ALBUMIN 3.7 GM/DL (3.2-5.2); ALT/SGPT 49 U/L (12-78); BLOOD UREA NITROGEN 15 MG/DL (7-18); CALCIUM LEVEL 9.7 MG/DL (8.8-10.2); CARBON DIOXIDE LEVEL 30 MEQ/L (21-32); CHLORIDE LEVEL 103 MEQ/L (98-107); CHOLESTEROL LEVEL 174 MG/DL (<200); CHOLESTEROL RISK RATIO 4.046 (<5); CREATININE FOR GFR 0.45 MG/DL (0.55-1.30); GLOMERULAR FILTRATION RATE > 60.0 (>32); GLUCOSE, FASTING 119 MG/DL (70-100); HDL CHOLESTEROL 43 MG/DL (>40); LDL CHOLESTEROL 110 MG/DL (<100); NON-HDL-C 131 MG/DL; POTASSIUM SERUM 4.6 MEQ/L (3.5-5.1); SODIUM LEVEL 138 MEQ/L (136-145); TRIGLYCERIDES LEVEL 107 MG/DL (<150)
[2021-05-13 17:50] LABS: TOTAL 25(OH) VITAMIN D 24.1 NG/ML (30.0-100.0)
[2021-05-13 20:01] LABS: HEMOGLOBIN A1c 6.8 %
== END ==
LOC: M LAB REF 16:30
PROVIDERS: ATTEND Nurse Practitioner Family
DX: E78.2 Mixed hyperlipidemia (principal); E55.9 Vitamin D deficiency, unspecified

== ENCOUNTER → 2022-10-05 | Outpatient (REF) | payer MEDICARE, MEDICAID ==
[2022-10-05 19:01] LABS: CHOLESTEROL RISK RATIO 2.869 (<5)
[2022-10-05 22:40] LABS: HEMOGLOBIN A1c 6.2 %
== END ==
LOC: M LAB REF 16:06
PROVIDERS: ATTEND Nurse Practitioner Family
DX: E11.9 Type 2 diabetes mellitus without complications (principal); Z68.26 Body mass index [BMI] 26.0-26.9, adult

== ENCOUNTER → 2022-11-24 | Outpatient (REF) | payer MEDICARE, MEDICAID ==
[2022-11-24 17:15] LABS: MALB URINE SIEMENS < 3.0 MG/DL; MAU/CREAT RATIO 5.2 MCG/MG (0.0-30.0)
== END ==
LOC: M LAB REF 16:22
PROVIDERS: ATTEND Nurse Practitioner Family
DX: E11.9 Type 2 diabetes mellitus without complications (principal)

== ENCOUNTER → 2022-12-10 | Outpatient (CLI) | payer MEDICARE, MEDICAID | LOC: M WHC 13:57 | PROVIDERS: ATTEND Nurse Practitioner Family | DX: Z12.31 Encounter for screening mammogram for malignant neoplasm of breast (principal) ==

== ENCOUNTER → 2023-02-11 | Outpatient (CLI) | payer MEDICARE, MEDICAID ==
[~2023-02-11] MED LIST changes: -AMLO1TAB24; +AMLO1TAB24 PO; +ATOR1TAB21 PO; +ECOT81TA5 PO; +VITMTA PO
== END ==
LOC: M LABSMTC 07:43
PROVIDERS: ATTEND Anesthesiology
DX: Z01.818 Encounter for other preprocedural examination (principal); Z11.52 Encounter for screening for COVID-19

== ENCOUNTER → 2023-03-01 | Outpatient (REF) | payer MEDICARE, MEDICAID ==
[2023-03-01 14:41] LABS: BASO % 0.4 % (0.0-1.0); EOS # 0.1 10^3/uL (0.0-0.5); EOS % 1.8 % (0.0-3.0); HEMATOCRIT 45.5 % (36.0-47.0); HEMOGLOBIN 13.9 g/dl (12.0-15.5); LYMPH # 2.3 10^3/uL (1.5-5.0); LYMPH % 44.4 % (24.0-44.0); MEAN CORPUSCULAR HEMOGLOBIN 29.3 pg (27.0-33.0); MEAN CORPUSCULAR HGB CONC 30.5 g/dl (32.0-36.5); MEAN CORPUSCULAR VOLUME 95.8 fl (80.0-96.0); MONO # 0.5 10^3/uL (0.0-0.8); MONO % 8.8 % (2.0-8.0); NEUTROPHILS # 2.3 10^3/uL (1.5-8.5); NEUTROPHILS % 44.4 % (36.0-66.0); PLATELET COUNT, AUTOMATED 210 10^3/uL (150-450); RED BLOOD COUNT 4.75 10^6/uL (4.00-5.40); WHITE BLOOD COUNT 5.1 10^3/uL (4.0-10.0)
[2023-03-01 16:34] LABS: HEMOGLOBIN A1c 6.3 % (4.0-6.0)
[2023-03-01 19:12] LABS: THYROID STIMULATING HORMONE 4.324 uIU/ML (0.55-4.78)
[2023-03-01 19:17] LABS: TOTAL 25(OH) VITAMIN D 38.2 NG/ML (20.0-100.0)
[2023-03-01 19:20] LABS: ALBUMIN 3.5 G/DL (3.2-5.2); ALKALINE PHOSPHATASE 75 U/L (46-116); ALT/SGPT 23 U/L (7.0-40); AST/SGOT 25 U/L (<34); BILIRUBIN,TOTAL 0.8 MG/DL (0.3-1.2); BLOOD UREA NITROGEN 16 MG/DL (9-23); CALCIUM LEVEL 9.4 MG/DL (8.3-10.6); CARBON DIOXIDE LEVEL 30 MMOL/L (20-31); CHLORIDE LEVEL 105 MMOL/L (98-107); CHOLESTEROL LEVEL 156 MG/DL (<200); CHOLESTEROL RISK RATIO 3.77 (<5); GLOMERULAR FILTRATION RATE > 60.0 (>32); GLUCOSE, FASTING 115 MG/DL (74-106); HDL CHOLESTEROL 41.3 MG/DL (>40); LDL CHOLESTEROL 91.1 MG/DL (<100); NON-HDL-C 114.7 MG/DL; POTASSIUM SERUM 4.5 MMOL/L (3.5-5.1); SODIUM LEVEL 141 MMOL/L (136-145); TOTAL PROTEIN 7.3 G/DL (5.7-8.2); TRIGLYCERIDES LEVEL 118 MG/DL (<150)
== END ==
LOC: M LAB REF 12:15
PROVIDERS: ATTEND Nurse Practitioner Family
DX: Z22.8 Carrier of other infectious diseases (principal)

== ENCOUNTER 2023-05-10 15:35 | Emergency (ER) | payer MEDICARE, MEDICAID ==
[~2023-05-10] VITALS: Ht 154.9 cm; Wt 65.5 kg
[2023-05-10 20:42] LABS: BASO % 0.4 % (0.0-1.0); EOS # 0.1 10^3/uL (0.0-0.5); EOS % 1.7 % (0.0-3.0); HEMATOCRIT 44.5 % (36.0-47.0); LYMPH # 1.8 10^3/uL (1.5-5.0); LYMPH % 40.1 % (24.0-44.0); MEAN CORPUSCULAR HEMOGLOBIN 29.5 pg (27.0-33.0); MEAN CORPUSCULAR HGB CONC 31.5 g/dl (32.0-36.5); MEAN CORPUSCULAR VOLUME 93.7 fl (80.0-96.0); MONO # 0.4 10^3/uL (0.0-0.8); MONO % 8.3 % (2.0-8.0); NEUTROPHILS # 2.3 10^3/uL (1.5-8.5); NEUTROPHILS % 49.3 % (36.0-66.0); PLATELET COUNT, AUTOMATED 199 10^3/uL (150-450); RED BLOOD COUNT 4.75 10^6/uL (4.00-5.40); WHITE BLOOD COUNT 4.6 10^3/uL (4.0-10.0)
[2023-05-10 20:53] LABS: INR 0.97; PROTHROMBIN TIME 13.1 SECONDS (12.5-14.5)
[2023-05-10 20:54] LABS: PARTIAL THROMBOPLASTIN TIME 31.5 SECONDS (24.8-34.2)
[2023-05-10 21:02] LABS: LIPASE 36 U/L (12-53)
[2023-05-10 21:04] LABS: ALBUMIN 3.8 G/DL (3.2-5.2); ALKALINE PHOSPHATASE 96 U/L (46-116); ALT/SGPT 38 U/L (7.0-40); AST/SGOT 38 U/L (<34); BILIRUBIN,DIRECT 0.4 MG/DL (<0.4); BILIRUBIN,TOTAL 1.1 MG/DL (0.3-1.2); BLOOD UREA NITROGEN 15 MG/DL (9-23); CALCIUM LEVEL 8.8 MG/DL (8.3-10.6); CARBON DIOXIDE LEVEL 27 MMOL/L (20-31); CHLORIDE LEVEL 104 MMOL/L (98-107); CREATININE FOR GFR 0.54 MG/DL (0.55-1.30); GLOMERULAR FILTRATION RATE > 60.0 (>32); GLUCOSE, FASTING 122 MG/DL (74-106); POTASSIUM SERUM 4.2 MMOL/L (3.5-5.1); SODIUM LEVEL 138 MMOL/L (136-145); TOTAL PROTEIN 7.6 G/DL (5.7-8.2)
[2023-05-10 21:07] LABS: FREE T4 1.06 NG/DL (0.89-1.76)
[2023-05-10 21:09] LABS: CPK CREATINE PHOSPHOKINASE 31 U/L (34-145); MB/CK RELATIVE INDEX 3.22 (< OR =4)
[2023-05-10] MEDS ORDERED: ISOVUE-370 76% 100ML VIAL As Ordered ONE (21:21)
[2023-05-10 23:00] LABS: RSV AMPLIFICATION NEGATIVE (NEGATIVE)
[2023-05-10] MEDS ORDERED: TORS5TAB2 PO (23:28)
[2023-05-10 23:38] VITALS: BP 115/75; TEMP 99.1; O2SAT 97
== END 2023-05-10 23:48 | disposition home or self-care (01) ==
LOC: M ED 15:35
DX: S22.080A Wedge compression fracture of T11-T12 vertebra, initial encounter for closed fracture (principal); R06.00 Dyspnea, unspecified; R79.0 Abnormal level of blood mineral; I51.7 Cardiomegaly; R22.43 Localized swelling, mass and lump, lower limb, bilateral; E11.9 Type 2 diabetes mellitus without complications; I10 Essential (primary) hypertension; E78.5 Hyperlipidemia, unspecified; Z88.0 Allergy status to penicillin; Z79.82 Long term (current) use of aspirin; Z79.02 Long term (current) use of antithrombotics/antiplatelets; Z79.899 Other long term (current) drug therapy
CPT/HCPCS: 36415; 71046; 71275; 80047; 80048; 80076; 82550; 82553; 83690; 83880; 84439; 84443; 84484; 85025; 85610; 85730; 87631; 93005; 99284; Q9967

== ENCOUNTER → 2023-05-14 | Outpatient (CLI) | payer MEDICARE, MEDICAID ==
[~2023-05-14] MED LIST changes: +TORS5TAB2 PO
== END ==
LOC: M SOG 11:41
PROVIDERS: ATTEND Orthopaedic Surgery
DX: M85.88 Other specified disorders of bone density and structure, other site (principal); M51.34 Other intervertebral disc degeneration, thoracic region

== ENCOUNTER → 2023-05-17 | Outpatient (CLI) | payer MEDICARE, MEDICAID ==
[2023-05-17 12:16] LABS: BLOOD UREA NITROGEN 20 MG/DL (9-23); CALCIUM LEVEL 9.5 MG/DL (8.3-10.6); CARBON DIOXIDE LEVEL 31 MMOL/L (20-31); CHLORIDE LEVEL 103 MMOL/L (98-107); CREATININE FOR GFR 0.57 MG/DL (0.55-1.30); GLOMERULAR FILTRATION RATE > 60.0 (>32); GLUCOSE, FASTING 108 MG/DL (74-106); POTASSIUM SERUM 4.6 MMOL/L (3.5-5.1); SODIUM LEVEL 141 MMOL/L (136-145)
== END ==
LOC: M LAB 10:51
PROVIDERS: ATTEND Physician Assistant Medical
DX: R79.89 Other specified abnormal findings of blood chemistry (principal); Z79.899 Other long term (current) drug therapy

== ENCOUNTER 2023-06-17 11:23 | Inpatient (IN) | payer MEDICARE, MEDICAID ==
[~2023-06-17] VITALS: Ht 137.2 cm; Wt 78.2 kg
[~2023-06-17 11:23] MED LIST changes: +ALDA25TA2 PO; +CEFD300CAP PO; +DOXY100T PO; +ENTR1TAB PO; +FARX1TAB3 PO; +MAGN400T2 PO; +METO1TAB32 PO
[2023-06-17] MEDS ORDERED: GUAI100L6 PO (11:51)
[2023-06-17 14:00] VITALS: BP 105/57; TEMP 97.8; O2SAT 93
[2023-06-17] MEDS ORDERED: BISACODYL 10MG SUPP PR PRN (16:45)
[2023-06-17] MEDS ORDERED: DEXTROSE 50% 50ML SYRINGE IV PRN (16:45)
[2023-06-17] MEDS ORDERED: GLUCOSE 4GM CHEW TABLET PO PRN (16:45)
[2023-06-17] MEDS ORDERED: GLUCAGON INJ 1MG VIAL SC PRN (16:45)
[2023-06-17] MEDS: INSULIN LISPRO (NovoLOG) PER UNIT SC SCH ×2 (17:14→20:27)
[2023-06-17] MEDS: LACTOBACILLUS ACIDOPHILUS CAP (BACID) PO SCH (17:38)
[2023-06-17] MEDS: RIVAROXABAN 10MG TAB (XARELTO) PO SCH (17:38)
[2023-06-17 20:00] VITALS: BP 92/55; TEMP 98.4; O2SAT 92
[2023-06-17] MEDS: REMEDY PHYTOPLEX Z-GUARD PASTE 113GM TUBE (FROM STOREROOM PRODUCT) TOP SCH (20:26)
[2023-06-17] MEDS: ENTRESTO 24-26MG TABLET (SACUBITRIL/VALSARTAN) PO SCH (20:26)
[2023-06-17] MEDS: SENNA 8.6 MG TAB (SENOKOT) PO SCH (20:30)
[2023-06-17] MEDS: DOCUSATE SODIUM 100MG CAPSULE PO SCH (20:30)
[2023-06-17] MEDS: CEFDINIR 300 MG CAP (OMNICEF) PO SCH (20:30)
[2023-06-17] MEDS: PANTOPRAZOLE 40MG TAB (PROTONIX) PO SCH (20:30)
[2023-06-17] MEDS: DOXYCYCLINE HYCLATE 100MG TABLET PO SCH (20:30)
[2023-06-17] MEDS: ATORVASTATIN 20 MG TAB PO SCH (20:31)
[2023-06-17] MEDS: MAGNESIUM OXIDE 400MG TAB (MAG-OX) PO SCH (20:31)
[2023-06-17] MEDS: LEVALBUTEROL HFA 45MCG/ACT 15GM INHALER INH SCH (21:37)
[2023-06-17] MEDS: METOPROLOL TART 12.5 MG PER 1/2 TAB PO SCH (22:00)
[2023-06-17 22:30] VITALS: BP 99/60; TEMP 98.3; O2SAT 92
[2023-06-18 01:11] VITALS: O2SAT 93
[2023-06-18] MEDS ORDERED: BENZONATATE 100MG CAPSULE PO PRN (02:45)
[2023-06-18] MEDS ORDERED: guaiFENesin SYRUP 200MG 10ML UDC PO PRN (02:45)
[2023-06-18] MEDS: METOPROLOL TART 12.5 MG PER 1/2 TAB PO SCH ×3 (05:35→21:16)
[2023-06-18 06:00] VITALS: BP 104/61; TEMP 97.9; O2SAT 96
[2023-06-18 06:39] LABS: BASO % 0.4 % (0.0-1.0); EOS # 0.2 10^3/uL (0.0-0.5); EOS % 3.4 % (0.0-3.0); HEMATOCRIT 47.6 % (36.0-47.0); HEMOGLOBIN 15.3 g/dl (12.0-15.5); LYMPH # 1.9 10^3/uL (1.5-5.0); LYMPH % 34.7 % (24.0-44.0); MEAN CORPUSCULAR HEMOGLOBIN 28.8 pg (27.0-33.0); MEAN CORPUSCULAR HGB CONC 32.1 g/dl (32.0-36.5); MEAN CORPUSCULAR VOLUME 89.5 fl (80.0-96.0); MONO # 0.7 10^3/uL (0.0-0.8); MONO % 12.7 % (2.0-8.0); NEUTROPHILS # 2.7 10^3/uL (1.5-8.5); NEUTROPHILS % 48.1 % (36.0-66.0); PLATELET COUNT, AUTOMATED 201 10^3/uL (150-450); RED BLOOD COUNT 5.32 10^6/uL (4.00-5.40); WHITE BLOOD COUNT 5.6 10^3/uL (4.0-10.0)
[2023-06-18 07:11] LABS: ALBUMIN 3.2 G/DL (3.2-5.2); ALKALINE PHOSPHATASE 99 U/L (46-116); ALT/SGPT 62 U/L (7.0-40); AST/SGOT 94 U/L (<34); BILIRUBIN,TOTAL 1.5 MG/DL (0.3-1.2); BLOOD UREA NITROGEN 27 MG/DL (9-23); CALCIUM LEVEL 9.1 MG/DL (8.3-10.6); CARBON DIOXIDE LEVEL 34 MMOL/L (20-31); CHLORIDE LEVEL 92 MMOL/L (98-107); CREATININE FOR GFR 0.87 MG/DL (0.55-1.30); GLOMERULAR FILTRATION RATE > 60.0 (>32); GLUCOSE, FASTING 93 MG/DL (74-106); POTASSIUM SERUM 3.8 MMOL/L (3.5-5.1); SODIUM LEVEL 134 MMOL/L (136-145); TOTAL PROTEIN 7.1 G/DL (5.7-8.2)
[2023-06-18] MEDS ORDERED: HOME MED LIST COMPLETE! XX SCH (08:15)
[2023-06-18] MEDS: LEVALBUTEROL HFA 45MCG/ACT 15GM INHALER INH SCH ×4 (08:26→21:00)
[2023-06-18] MEDS ORDERED: TORSEMIDE 20 MG TAB PO SCH (09:00)
[2023-06-18] MEDS: REMEDY PHYTOPLEX Z-GUARD PASTE 113GM TUBE (FROM STOREROOM PRODUCT) TOP SCH ×3 (09:00→21:00)
[2023-06-18] MEDS: DOCUSATE SODIUM 100MG CAPSULE PO SCH ×2 (09:41→21:17)
[2023-06-18] MEDS: ENTRESTO 24-26MG TABLET (SACUBITRIL/VALSARTAN) PO SCH ×2 (09:41→21:00)
[2023-06-18] MEDS: DAPAGLIFLOZIN PROPANEDIOL 10MG TABLET (FARXIGA) PO SCH (09:41)
[2023-06-18] MEDS: ASPIRIN 81MG ENTERIC TABLET PO SCH (09:41)
[2023-06-18] MEDS: INSULIN LISPRO (NovoLOG) PER UNIT SC SCH ×4 (09:41→21:00)
[2023-06-18] MEDS: CEFDINIR 300 MG CAP (OMNICEF) PO SCH ×2 (09:41→21:15)
[2023-06-18] MEDS: TORSEMIDE 10 MG TABLET PO SCH (09:42)
[2023-06-18] MEDS: SPIRONOLACTONE 25 MG TAB PO SCH (09:42)
[2023-06-18] MEDS: DOXYCYCLINE HYCLATE 100MG TABLET PO SCH ×2 (09:42→21:16)
[2023-06-18] MEDS: MAGNESIUM OXIDE 400MG TAB (MAG-OX) PO SCH ×2 (09:42→21:17)
[2023-06-18] MEDS: PANTOPRAZOLE 40MG TAB (PROTONIX) PO SCH ×2 (09:42→21:17)
[2023-06-18] MEDS: LACTOBACILLUS ACIDOPHILUS CAP (BACID) PO SCH ×2 (09:42→17:50)
[2023-06-18] MEDS: LORATADINE 5 MG HALF-TAB PO SCH (12:48)
[2023-06-18 14:00] VITALS: BP 133/61; TEMP 97.2; O2SAT 98
[2023-06-18] MEDS: RIVAROXABAN 10MG TAB (XARELTO) PO SCH (17:50)
[2023-06-18] MEDS: BENZONATATE 100MG CAPSULE PO SCH ×2 (17:51→21:17)
[2023-06-18 20:00] VITALS: BP 87/51; TEMP 97.8; O2SAT 100
[2023-06-18] MEDS: RAMELTEON 8 MG TAB (ROZEREM) PO SCH (21:15)
[2023-06-18] MEDS: SENNA 8.6 MG TAB (SENOKOT) PO SCH (21:17)
[2023-06-18] MEDS: ATORVASTATIN 20 MG TAB PO SCH (21:17)
[2023-06-19 05:02] VITALS: BP 80/48; TEMP 97.9; O2SAT 95
[2023-06-19] MEDS: METOPROLOL TART 12.5 MG PER 1/2 TAB PO SCH ×3 (05:12→22:00)
[2023-06-19 06:30] VITALS: BP 94/50
[2023-06-19] MEDS: LEVALBUTEROL HFA 45MCG/ACT 15GM INHALER INH SCH ×4 (07:39→20:11)
[2023-06-19] MEDS: LORATADINE 5 MG HALF-TAB PO SCH (08:10)
[2023-06-19] MEDS: BENZONATATE 100MG CAPSULE PO SCH ×3 (08:10→22:04)
[2023-06-19] MEDS: TORSEMIDE 10 MG TABLET PO SCH (08:10)
[2023-06-19] MEDS: DOCUSATE SODIUM 100MG CAPSULE PO SCH ×2 (08:10→22:05)
[2023-06-19] MEDS: DOXYCYCLINE HYCLATE 100MG TABLET PO SCH ×2 (08:11→22:05)
[2023-06-19] MEDS: LACTOBACILLUS ACIDOPHILUS CAP (BACID) PO SCH ×2 (08:11→17:30)
[2023-06-19] MEDS: CEFDINIR 300 MG CAP (OMNICEF) PO SCH ×2 (08:11→22:01)
[2023-06-19] MEDS: ASPIRIN 81MG ENTERIC TABLET PO SCH (08:11)
[2023-06-19] MEDS: MAGNESIUM OXIDE 400MG TAB (MAG-OX) PO SCH ×2 (08:13→22:05)
[2023-06-19] MEDS: INSULIN LISPRO (NovoLOG) PER UNIT SC SCH ×4 (08:13→21:00)
[2023-06-19] MEDS: SPIRONOLACTONE 25 MG TAB PO SCH (08:14)
[2023-06-19] MEDS: DAPAGLIFLOZIN PROPANEDIOL 10MG TABLET (FARXIGA) PO SCH (08:14)
[2023-06-19] MEDS: ENTRESTO 24-26MG TABLET (SACUBITRIL/VALSARTAN) PO SCH ×2 (08:14→21:00)
[2023-06-19] MEDS: REMEDY PHYTOPLEX Z-GUARD PASTE 113GM TUBE (FROM STOREROOM PRODUCT) TOP SCH ×3 (08:15→21:00)
[2023-06-19] MEDS: PANTOPRAZOLE 40MG TAB (PROTONIX) PO SCH ×2 (08:15→22:05)
[2023-06-19] MEDS: ACETAMINOPHEN TAB 650MG DOSE (2X325MG) PO PRN (09:39)
[2023-06-19 14:00] VITALS: BP 83/42; TEMP 97.7; O2SAT 91
[2023-06-19] MEDS: RIVAROXABAN 10MG TAB (XARELTO) PO SCH (17:30)
[2023-06-19 20:00] VITALS: BP 92/55; TEMP 98.8; O2SAT 93
[2023-06-19 21:57] VITALS: BP 84/46
[2023-06-19] MEDS: RAMELTEON 8 MG TAB (ROZEREM) PO SCH (22:04)
[2023-06-19] MEDS: ATORVASTATIN 20 MG TAB PO SCH (22:04)
[2023-06-19] MEDS: SENNA 8.6 MG TAB (SENOKOT) PO SCH (22:05)
[2023-06-20] MEDS: METOPROLOL TART 12.5 MG PER 1/2 TAB PO SCH ×3 (05:46→21:31)
[2023-06-20 06:00] VITALS: BP 105/61; TEMP 97.2; O2SAT 98
[2023-06-20] MEDS: LEVALBUTEROL HFA 45MCG/ACT 15GM INHALER INH SCH ×4 (07:14→21:24)
[2023-06-20] MEDS: ENTRESTO 24-26MG TABLET (SACUBITRIL/VALSARTAN) PO SCH ×2 (07:52→19:46)
[2023-06-20] MEDS: SPIRONOLACTONE 25 MG TAB PO SCH (07:52)
[2023-06-20] MEDS: LORATADINE 5 MG HALF-TAB PO SCH (08:55)
[2023-06-20] MEDS: PANTOPRAZOLE 40MG TAB (PROTONIX) PO SCH ×2 (08:55→20:14)
[2023-06-20] MEDS: CEFDINIR 300 MG CAP (OMNICEF) PO SCH (08:55)
[2023-06-20] MEDS: DOXYCYCLINE HYCLATE 100MG TABLET PO SCH (08:55)
[2023-06-20] MEDS: INSULIN LISPRO (NovoLOG) PER UNIT SC SCH ×4 (08:55→20:09)
[2023-06-20] MEDS: LACTOBACILLUS ACIDOPHILUS CAP (BACID) PO SCH ×2 (08:56→18:03)
[2023-06-20] MEDS: BENZONATATE 100MG CAPSULE PO SCH ×3 (08:56→20:14)
[2023-06-20] MEDS: ASPIRIN 81MG ENTERIC TABLET PO SCH (08:56)
[2023-06-20] MEDS: DOCUSATE SODIUM 100MG CAPSULE PO SCH ×2 (08:56→20:14)
[2023-06-20] MEDS: REMEDY PHYTOPLEX Z-GUARD PASTE 113GM TUBE (FROM STOREROOM PRODUCT) TOP SCH ×3 (08:56→19:23)
[2023-06-20] MEDS: TORSEMIDE 10 MG TABLET PO SCH (08:56)
[2023-06-20] MEDS: MAGNESIUM OXIDE 400MG TAB (MAG-OX) PO SCH ×2 (08:56→20:14)
[2023-06-20] MEDS: DAPAGLIFLOZIN PROPANEDIOL 10MG TABLET (FARXIGA) PO SCH (08:56)
[2023-06-20 12:00] VITALS: BP 97/54; TEMP 98; O2SAT 92
[2023-06-20 14:00] VITALS: BP 97/54; TEMP 98; O2SAT 92
[2023-06-20] MEDS: RIVAROXABAN 10MG TAB (XARELTO) PO SCH (18:03)
[2023-06-20 20:00] VITALS: BP 100/55; TEMP 98.2; O2SAT 96
[2023-06-20] MEDS: SENNA 8.6 MG TAB (SENOKOT) PO SCH (20:14)
[2023-06-20] MEDS: RAMELTEON 8 MG TAB (ROZEREM) PO SCH (20:14)
[2023-06-20] MEDS: ATORVASTATIN 20 MG TAB PO SCH (20:14)
[2023-06-21] MEDS: METOPROLOL TART 12.5 MG PER 1/2 TAB PO SCH ×3 (05:39→22:00)
[2023-06-21 06:00] VITALS: BP 109/72; TEMP 97.3; O2SAT 97
[2023-06-21 06:10] LABS: BASO % 0.7 % (0.0-1.0); EOS # 0.2 10^3/uL (0.0-0.5); EOS % 3.4 % (0.0-3.0); HEMOGLOBIN 15.2 g/dl (12.0-15.5); LYMPH # 1.7 10^3/uL (1.5-5.0); LYMPH % 38.4 % (24.0-44.0); MEAN CORPUSCULAR HEMOGLOBIN 28.7 pg (27.0-33.0); MEAN CORPUSCULAR HGB CONC 31.7 g/dl (32.0-36.5); MEAN CORPUSCULAR VOLUME 90.6 fl (80.0-96.0); MONO # 0.7 10^3/uL (0.0-0.8); MONO % 16.4 % (2.0-8.0); NEUTROPHILS # 1.8 10^3/uL (1.5-8.5); NEUTROPHILS % 40.6 % (36.0-66.0); PLATELET COUNT, AUTOMATED 225 10^3/uL (150-450); WHITE BLOOD COUNT 4.4 10^3/uL (4.0-10.0)
[2023-06-21 06:38] LABS: CALCIUM LEVEL 9.1 MG/DL (8.3-10.6); CREATININE FOR GFR 1.08 MG/DL (0.55-1.30); GLOMERULAR FILTRATION RATE 51.6 (>32)
[2023-06-21] MEDS: SPIRONOLACTONE 25 MG TAB PO SCH (07:08)
[2023-06-21] MEDS: ENTRESTO 24-26MG TABLET (SACUBITRIL/VALSARTAN) PO SCH ×2 (07:08→20:34)
[2023-06-21] MEDS: LEVALBUTEROL HFA 45MCG/ACT 15GM INHALER INH SCH ×4 (07:13→19:34)
[2023-06-21] MEDS: LACTOBACILLUS ACIDOPHILUS CAP (BACID) PO SCH ×2 (07:15→17:01)
[2023-06-21] MEDS: PANTOPRAZOLE 40MG TAB (PROTONIX) PO SCH ×2 (07:15→20:35)
[2023-06-21] MEDS: LORATADINE 5 MG HALF-TAB PO SCH (07:15)
[2023-06-21] MEDS: MAGNESIUM OXIDE 400MG TAB (MAG-OX) PO SCH ×2 (07:16→20:35)
[2023-06-21] MEDS: DOCUSATE SODIUM 100MG CAPSULE PO SCH ×2 (07:16→20:34)
[2023-06-21] MEDS: BENZONATATE 100MG CAPSULE PO SCH ×3 (07:16→20:35)
[2023-06-21] MEDS: ASPIRIN 81MG ENTERIC TABLET PO SCH (07:16)
[2023-06-21] MEDS: INSULIN LISPRO (NovoLOG) PER UNIT SC SCH ×4 (07:16→20:34)
[2023-06-21] MEDS: DAPAGLIFLOZIN PROPANEDIOL 10MG TABLET (FARXIGA) PO SCH (07:16)
[2023-06-21] MEDS: REMEDY PHYTOPLEX Z-GUARD PASTE 113GM TUBE (FROM STOREROOM PRODUCT) TOP SCH ×3 (07:17→19:40)
[2023-06-21] MEDS: ACETAMINOPHEN TAB 650MG DOSE (2X325MG) PO PRN (07:19)
[2023-06-21 14:00] VITALS: BP 106/61; TEMP 97.7; O2SAT 97
[2023-06-21] MEDS: RIVAROXABAN 10MG TAB (XARELTO) PO SCH (17:05)
[2023-06-21 20:00] VITALS: BP 118/63; TEMP 98.1; O2SAT 98
[2023-06-21] MEDS: SENNA 8.6 MG TAB (SENOKOT) PO SCH (20:34)
[2023-06-21] MEDS: RAMELTEON 8 MG TAB (ROZEREM) PO SCH (20:35)
[2023-06-21] MEDS: ATORVASTATIN 20 MG TAB PO SCH (20:36)
[2023-06-21 20:43] VITALS: BP 102/70
[2023-06-22] MEDS: METOPROLOL TART 12.5 MG PER 1/2 TAB PO SCH ×3 (05:41→21:49)
[2023-06-22 06:00] VITALS: BP 108/72; TEMP 97.4; O2SAT 97
[2023-06-22] MEDS: LEVALBUTEROL HFA 45MCG/ACT 15GM INHALER INH SCH ×4 (07:44→19:33)
[2023-06-22] MEDS: DOCUSATE SODIUM 100MG CAPSULE PO SCH ×2 (08:08→19:22)
[2023-06-22] MEDS: SPIRONOLACTONE 25 MG TAB PO SCH (08:08)
[2023-06-22] MEDS: ENTRESTO 24-26MG TABLET (SACUBITRIL/VALSARTAN) PO SCH ×2 (08:08→19:30)
[2023-06-22] MEDS: REMEDY PHYTOPLEX Z-GUARD PASTE 113GM TUBE (FROM STOREROOM PRODUCT) TOP SCH ×3 (08:08→19:22)
[2023-06-22] MEDS: ASPIRIN 81MG ENTERIC TABLET PO SCH (08:10)
[2023-06-22] MEDS: PANTOPRAZOLE 40MG TAB (PROTONIX) PO SCH ×2 (08:10→20:52)
[2023-06-22] MEDS: LORATADINE 5 MG HALF-TAB PO SCH (08:10)
[2023-06-22] MEDS: DAPAGLIFLOZIN PROPANEDIOL 10MG TABLET (FARXIGA) PO SCH (08:10)
[2023-06-22] MEDS: BENZONATATE 100MG CAPSULE PO SCH ×3 (08:10→20:52)
[2023-06-22] MEDS: LACTOBACILLUS ACIDOPHILUS CAP (BACID) PO SCH ×2 (08:10→17:12)
[2023-06-22] MEDS: MAGNESIUM OXIDE 400MG TAB (MAG-OX) PO SCH ×2 (08:10→20:52)
[2023-06-22] MEDS: INSULIN LISPRO (NovoLOG) PER UNIT SC SCH ×2 (08:11→12:09)
[2023-06-22] MEDS: ACETAMINOPHEN TAB 650MG DOSE (2X325MG) PO PRN (10:21)
[2023-06-22 14:00] VITALS: BP 109/60; TEMP 98.1; O2SAT 100
[2023-06-22] MEDS: RIVAROXABAN 10MG TAB (XARELTO) PO SCH (17:12)
[2023-06-22] MEDS: SENNA 8.6 MG TAB (SENOKOT) PO SCH (19:22)
[2023-06-22 20:00] VITALS: BP 98/56; TEMP 97.5; O2SAT 96
[2023-06-22] MEDS: RAMELTEON 8 MG TAB (ROZEREM) PO SCH (20:52)
[2023-06-22] MEDS: ATORVASTATIN 20 MG TAB PO SCH (20:52)
[2023-06-23] MEDS: METOPROLOL TART 12.5 MG PER 1/2 TAB PO SCH ×3 (05:53→23:12)
[2023-06-23 06:00] VITALS: BP 98/60; TEMP 97.2; O2SAT 96
[2023-06-23] MEDS: ENTRESTO 24-26MG TABLET (SACUBITRIL/VALSARTAN) PO SCH ×2 (09:00→20:28)
[2023-06-23] MEDS: SPIRONOLACTONE 25 MG TAB PO SCH (09:00)
[2023-06-23] MEDS: REMEDY PHYTOPLEX Z-GUARD PASTE 113GM TUBE (FROM STOREROOM PRODUCT) TOP SCH ×3 (09:00→20:28)
[2023-06-23] MEDS: ASPIRIN 81MG ENTERIC TABLET PO SCH (09:10)
[2023-06-23] MEDS: LACTOBACILLUS ACIDOPHILUS CAP (BACID) PO SCH ×2 (09:10→18:04)
[2023-06-23] MEDS: DOCUSATE SODIUM 100MG CAPSULE PO SCH ×2 (09:10→20:28)
[2023-06-23] MEDS: DAPAGLIFLOZIN PROPANEDIOL 10MG TABLET (FARXIGA) PO SCH (09:10)
[2023-06-23] MEDS: BENZONATATE 100MG CAPSULE PO SCH ×3 (09:10→20:29)
[2023-06-23] MEDS: LORATADINE 5 MG HALF-TAB PO SCH (09:10)
[2023-06-23] MEDS: MAGNESIUM OXIDE 400MG TAB (MAG-OX) PO SCH ×2 (09:10→20:29)
[2023-06-23] MEDS: PANTOPRAZOLE 40MG TAB (PROTONIX) PO SCH ×2 (09:10→20:29)
[2023-06-23] MEDS: LEVALBUTEROL HFA 45MCG/ACT 15GM INHALER INH SCH ×4 (09:15→20:38)
[2023-06-23 14:00] VITALS: BP 107/65; TEMP 97.9; O2SAT 96
[2023-06-23] MEDS: RIVAROXABAN 10MG TAB (XARELTO) PO SCH (18:04)
[2023-06-23 20:00] VITALS: BP 99/63; TEMP 97.2; O2SAT 100
[2023-06-23] MEDS: SENNA 8.6 MG TAB (SENOKOT) PO SCH (20:28)
[2023-06-23] MEDS: RAMELTEON 8 MG TAB (ROZEREM) PO SCH (20:29)
[2023-06-23] MEDS: ATORVASTATIN 20 MG TAB PO SCH (20:29)
[2023-06-23 23:05] VITALS: BP 122/69; O2SAT 98
[2023-06-24 06:00] VITALS: BP 96/53; TEMP 97.8; O2SAT 99
[2023-06-24] MEDS: METOPROLOL TART 12.5 MG PER 1/2 TAB PO SCH (06:00)
[2023-06-24] MEDS: LEVALBUTEROL HFA 45MCG/ACT 15GM INHALER INH SCH (07:11)
[2023-06-24 08:15] VITALS: BP 99/57
[2023-06-24] MEDS: ASPIRIN 81MG ENTERIC TABLET PO SCH (08:21)
[2023-06-24] MEDS: LORATADINE 5 MG HALF-TAB PO SCH (08:21)
[2023-06-24] MEDS: DAPAGLIFLOZIN PROPANEDIOL 10MG TABLET (FARXIGA) PO SCH (08:21)
[2023-06-24] MEDS: MAGNESIUM OXIDE 400MG TAB (MAG-OX) PO SCH (08:22)
[2023-06-24] MEDS: ENTRESTO 24-26MG TABLET (SACUBITRIL/VALSARTAN) PO SCH (08:22)
[2023-06-24] MEDS: DOCUSATE SODIUM 100MG CAPSULE PO SCH (08:22)
[2023-06-24] MEDS: BENZONATATE 100MG CAPSULE PO SCH (08:22)
[2023-06-24] MEDS: SPIRONOLACTONE 25 MG TAB PO SCH (08:22)
[2023-06-24] MEDS: PANTOPRAZOLE 40MG TAB (PROTONIX) PO SCH (08:22)
[2023-06-24] MEDS: REMEDY PHYTOPLEX Z-GUARD PASTE 113GM TUBE (FROM STOREROOM PRODUCT) TOP SCH (08:23)
[2023-06-24] MEDS: LACTOBACILLUS ACIDOPHILUS CAP (BACID) PO SCH (08:23)
[2023-06-24] MEDS ORDERED: ENTR1TAB PO (09:52)
[2023-06-24] MEDS ORDERED: PANT40TA29 PO (09:52)
[2023-06-24] MEDS ORDERED: ATOR1TAB21 PO (09:52)
[2023-06-24] MEDS ORDERED: FARX1TAB3 PO (09:52)
[2023-06-24] MEDS ORDERED: ALDA25TA2 PO (09:52)
[2023-06-24] MEDS ORDERED: ECOT81TA5 PO (09:52)
[2023-06-24] MEDS ORDERED: METO1TAB32 PO (09:52)
[2023-06-24] MEDS ORDERED: TORS10TA3 PO (10:09)
== END 2023-06-24 11:00 | disposition home or self-care (01) | DRG 291 ==
LOC: M PM&R 13:40
PROVIDERS: ADMIT Physical Medicine & Rehabilitation; ATTEND Physical Medicine & Rehabilitation
DX: I11.0 Hypertensive heart disease with heart failure (principal); J15.211 Pneumonia due to Methicillin susceptible Staphylococcus aureus; I50.42 Chronic combined systolic (congestive) and diastolic (congestive) heart failure; I95.9 Hypotension, unspecified; R13.10 Dysphagia, unspecified; R26.89 Other abnormalities of gait and mobility; E11.9 Type 2 diabetes mellitus without complications; E78.5 Hyperlipidemia, unspecified; I25.10 Atherosclerotic heart disease of native coronary artery without angina pectoris; I25.2 Old myocardial infarction; I27.20 Pulmonary hypertension, unspecified; I34.0 Nonrheumatic mitral (valve) insufficiency; Z74.09 Other reduced mobility; Z74.1 Need for assistance with personal care; R53.1 Weakness; Z90.49 Acquired absence of other specified parts of digestive tract; Z98.41 Cataract extraction status, right eye; Z98.42 Cataract extraction status, left eye; G47.00 Insomnia, unspecified; Z79.82 Long term (current) use of aspirin; Z79.899 Other long term (current) drug therapy; Z88.0 Allergy status to penicillin; Z79.01 Long term (current) use of anticoagulants

== ENCOUNTER → 2023-07-05 | Outpatient (REF) | payer MEDICARE, MEDICAID ==
[~2023-07-05] MED LIST changes: +GUAI100L6 PO; +PANT40TA29 PO; +TORS10TA3 PO
[2023-07-05 17:34] LABS: BASO % 0.7 % (0.0-1.0); EOS # 0.1 10^3/uL (0.0-0.5); EOS % 1.7 % (0.0-3.0); HEMATOCRIT 46.1 % (36.0-47.0); LYMPH % 43.4 % (24.0-44.0); MEAN CORPUSCULAR HEMOGLOBIN 28.7 pg (27.0-33.0); MEAN CORPUSCULAR HGB CONC 30.4 g/dl (32.0-36.5); MEAN CORPUSCULAR VOLUME 94.7 fl (80.0-96.0); MONO # 0.4 10^3/uL (0.0-0.8); MONO % 8.2 % (2.0-8.0); NEUTROPHILS # 2.1 10^3/uL (1.5-8.5); NEUTROPHILS % 45.8 % (36.0-66.0); PLATELET COUNT, AUTOMATED 175 10^3/uL (150-450); RED BLOOD COUNT 4.87 10^6/uL (4.00-5.40); WHITE BLOOD COUNT 4.6 10^3/uL (4.0-10.0)
[2023-07-05 17:36] LABS: ALBUMIN 3.3 G/DL (3.2-5.2); ALKALINE PHOSPHATASE 80 U/L (46-116); ALT/SGPT 68 U/L (7.0-40); AST/SGOT 56 U/L (<34); BILIRUBIN,TOTAL 0.7 MG/DL (0.3-1.2); BLOOD UREA NITROGEN 18 MG/DL (9-23); CALCIUM LEVEL 9.5 MG/DL (8.3-10.6); CARBON DIOXIDE LEVEL 31 MMOL/L (20-31); CHLORIDE LEVEL 107 MMOL/L (98-107); GLOMERULAR FILTRATION RATE > 60.0 (>32); GLUCOSE, FASTING 144 MG/DL (74-106); POTASSIUM SERUM 4.6 MMOL/L (3.5-5.1); SODIUM LEVEL 142 MMOL/L (136-145); TOTAL PROTEIN 7.2 G/DL (5.7-8.2)
[2023-07-05 18:12] LABS: HEMOGLOBIN A1c 6.8 % (4.0-6.0)
== END ==
LOC: M LAB REF 16:49
PROVIDERS: ATTEND Nurse Practitioner Family
DX: E11.9 Type 2 diabetes mellitus without complications (principal); I50.43 Acute on chronic combined systolic (congestive) and diastolic (congestive) heart failure

== ENCOUNTER → 2023-07-28 | Outpatient (CLI) | payer MEDICARE, MEDICAID ==
[2023-07-28 11:36] LABS: ALBUMIN 3.5 G/DL (3.2-5.2); BILIRUBIN,DIRECT 0.4 MG/DL (<0.4); BLOOD UREA NITROGEN 15 MG/DL (9-23); CALCIUM LEVEL 9.4 MG/DL (8.3-10.6); CARBON DIOXIDE LEVEL 35 MMOL/L (20-31); CHLORIDE LEVEL 102 MMOL/L (98-107); CREATININE FOR GFR 0.65 MG/DL (0.55-1.30); GLOMERULAR FILTRATION RATE > 60.0 (>32); GLUCOSE, FASTING 121 MG/DL (74-106); MAGNESIUM LEVEL 1.9 MG/DL (1.8-2.4); PHOSPHORUS LEVEL 4.3 MG/DL (2.4-5.1); POTASSIUM SERUM 3.7 MMOL/L (3.5-5.1); SODIUM LEVEL 142 MMOL/L (136-145)
== END ==
LOC: M LAB 09:34
PROVIDERS: ATTEND Internal Medicine Cardiovascular Disease
DX: I50.42 Chronic combined systolic (congestive) and diastolic (congestive) heart failure (principal)

== ENCOUNTER → 2023-09-01 | Outpatient (CLI) | payer MEDICARE, MEDICAID ==
[2023-09-01 10:03] LABS: HEMOGLOBIN A1c 7.9 % (4.0-6.0)
== END ==
LOC: M LAB 08:31
PROVIDERS: ATTEND Nurse Practitioner Family
DX: E11.9 Type 2 diabetes mellitus without complications (principal)

== ENCOUNTER → 2023-09-20 | Outpatient (CLI) | payer MEDICARE, MEDICAID ==
[2023-09-21 00:51] LABS: BLOOD UREA NITROGEN 27 MG/DL (9-23); CALCIUM LEVEL 9.3 MG/DL (8.3-10.6); CARBON DIOXIDE LEVEL 31 MMOL/L (20-31); CHLORIDE LEVEL 102 MMOL/L (98-107); CREATININE FOR GFR 0.64 MG/DL (0.55-1.30); GLOMERULAR FILTRATION RATE > 60.0 (>32); GLUCOSE, FASTING 125 MG/DL (74-106); POTASSIUM SERUM 4.7 MMOL/L (3.5-5.1); SODIUM LEVEL 139 MMOL/L (136-145)
== END ==
LOC: M LAB 14:00
PROVIDERS: ATTEND Internal Medicine Cardiovascular Disease
DX: I50.42 Chronic combined systolic (congestive) and diastolic (congestive) heart failure (principal)

== ENCOUNTER → 2023-11-08 | Outpatient (REF) | payer MEDICARE, MEDICAID ==
[2023-11-08 18:52] LABS: ALBUMIN 3.6 G/DL (3.2-5.2); ALKALINE PHOSPHATASE 79 U/L (46-116); ALT/SGPT 39 U/L (7.0-40); AST/SGOT 29 U/L (<34); BILIRUBIN,TOTAL 0.7 MG/DL (0.3-1.2); BLOOD UREA NITROGEN 22 MG/DL (9-23); CALCIUM LEVEL 9.7 MG/DL (8.3-10.6); CARBON DIOXIDE LEVEL 30 MMOL/L (20-31); CHLORIDE LEVEL 106 MMOL/L (98-107); CREATININE FOR GFR 0.55 MG/DL (0.55-1.30); GLOMERULAR FILTRATION RATE > 60.0 (>32); GLUCOSE, FASTING 135 MG/DL (74-106); POTASSIUM SERUM 5.3 MMOL/L (3.5-5.1); SODIUM LEVEL 141 MMOL/L (136-145); TOTAL PROTEIN 7.3 G/DL (5.7-8.2)
== END ==
LOC: M LAB REF 16:26
PROVIDERS: ATTEND Nurse Practitioner Family
DX: E11.9 Type 2 diabetes mellitus without complications (principal)

== ENCOUNTER → 2023-11-16 | Outpatient (REF) | payer MEDICARE, MEDICAID ==
[2023-11-16 14:19] LABS: CREATININE, URINE 35.2 MG/DL; CREATININE,RANDOM URINE 35.2 MG/DL
[2023-11-16 14:20] LABS: MALB URINE SIEMENS < 3.0 MG/L; MAU/CREAT RATIO 8.5 MCG/MG (0.0-30.0)
== END ==
LOC: M LAB REF 11:11
PROVIDERS: ATTEND Nurse Practitioner Family
DX: E11.9 Type 2 diabetes mellitus without complications (principal)

== ENCOUNTER → 2024-02-07 | Outpatient (REF) | payer MEDICARE, MEDICAID ==
[2024-02-07 12:43] LABS: ALBUMIN 3.6 G/DL (3.2-5.2); ALKALINE PHOSPHATASE 88 U/L (46-116); ALT/SGPT 31 U/L (7.0-40); AST/SGOT 25 U/L (<34); BILIRUBIN,TOTAL 0.7 MG/DL (0.3-1.2); BLOOD UREA NITROGEN 24 MG/DL (9-23); CALCIUM LEVEL 9.3 MG/DL (8.3-10.6); CARBON DIOXIDE LEVEL 31 MMOL/L (20-31); CHLORIDE LEVEL 104 MMOL/L (98-107); CREATININE FOR GFR 0.62 MG/DL (0.55-1.30); GLOMERULAR FILTRATION RATE > 60.0 (>32); GLUCOSE, FASTING 146 MG/DL (74-106); POTASSIUM SERUM 4.6 MMOL/L (3.5-5.1); SODIUM LEVEL 140 MMOL/L (136-145); TOTAL PROTEIN 7.6 G/DL (5.7-8.2)
== END ==
LOC: M LAB REF 10:51
PROVIDERS: ATTEND Nurse Practitioner Family
DX: E11.9 Type 2 diabetes mellitus without complications (principal)

== ENCOUNTER → 2024-05-08 | Outpatient (REF) | payer MEDICARE, MEDICAID ==
[2024-05-08 14:05] LABS: ALBUMIN 3.6 G/DL (3.2-5.2); BILIRUBIN,TOTAL 0.9 MG/DL (0.3-1.2); CHOLESTEROL RISK RATIO 2.86 (<5); CREATININE FOR GFR 1.01 MG/DL (0.55-1.30); GLOMERULAR FILTRATION RATE 55.6 (>32); HDL CHOLESTEROL 38.8 MG/DL (>40); LDL CHOLESTEROL 48.2 MG/DL (<100); NON-HDL-C 72.2 MG/DL; POTASSIUM SERUM 4.4 MMOL/L (3.5-5.1); TOTAL PROTEIN 7.4 G/DL (5.7-8.2)
[2024-05-08 14:27] LABS: HEMOGLOBIN A1c 7.9 % (4.0-6.0)
== END ==
LOC: M LAB REF 13:16
PROVIDERS: ATTEND Nurse Practitioner Family
DX: E11.9 Type 2 diabetes mellitus without complications (principal)

== ENCOUNTER → 2024-09-19 | Outpatient (REF) | payer MEDICARE, MEDICAID ==
[2024-09-19 14:17] LABS: BASO % 0.2 % (0.0-1.0); EOS # 0.2 10^3/uL (0.0-0.5); EOS % 2.8 % (0.0-3.0); HEMATOCRIT 40.8 % (36.0-47.0); LYMPH # 2.2 10^3/uL (1.5-5.0); LYMPH % 40.5 % (24.0-44.0); MEAN CORPUSCULAR HEMOGLOBIN 31.8 pg (27.0-33.0); MEAN CORPUSCULAR HGB CONC 31.9 g/dl (32.0-36.5); MEAN CORPUSCULAR VOLUME 99.8 fl (80.0-96.0); MONO # 0.5 10^3/uL (0.0-0.8); NEUTROPHILS # 2.5 10^3/uL (1.5-8.5); NEUTROPHILS % 47.3 % (36.0-66.0); PLATELET COUNT, AUTOMATED 204 10^3/uL (150-450); RED BLOOD COUNT 4.09 10^6/uL (4.00-5.40); WHITE BLOOD COUNT 5.4 10^3/uL (4.0-10.0)
[2024-09-19 14:20] LABS: ALBUMIN 3.6 G/DL (3.2-5.2); ALKALINE PHOSPHATASE 76 U/L (46-116); ALT/SGPT 28 U/L (7.0-40); AST/SGOT 24 U/L (<34); BILIRUBIN,TOTAL 0.7 MG/DL (0.3-1.2); BLOOD UREA NITROGEN 24 MG/DL (9-23); CALCIUM LEVEL 9.8 MG/DL (8.3-10.6); CARBON DIOXIDE LEVEL 29 MMOL/L (20-31); CHLORIDE LEVEL 105 MMOL/L (98-107); CREATININE FOR GFR 0.64 MG/DL (0.55-1.30); GLOMERULAR FILTRATION RATE > 60.0 (>32); GLUCOSE, FASTING 147 MG/DL (74-106); POTASSIUM SERUM 4.7 MMOL/L (3.5-5.1); SODIUM LEVEL 138 MMOL/L (136-145); TOTAL PROTEIN 7.7 G/DL (5.7-8.2)
[2024-09-19 14:56] LABS: HEMOGLOBIN A1c 7.1 % (4.0-6.0)
== END ==
LOC: M LAB REF 13:33
PROVIDERS: ATTEND Nurse Practitioner Family
DX: E55.9 Vitamin D deficiency, unspecified (principal); E66.3 Overweight; E11.9 Type 2 diabetes mellitus without complications

== ENCOUNTER → 2024-09-25 | Outpatient (REF) | payer MEDICARE, MEDICAID ==
[2024-09-25 18:18] LABS: CREATININE, URINE 43.4 MG/DL; MAU/CREAT RATIO 55.2 MCG/MG (0.0-30.0)
== END ==
LOC: M LAB REF 16:23
PROVIDERS: ATTEND Nurse Practitioner Family
DX: E11.9 Type 2 diabetes mellitus without complications (principal); R39.9 Unspecified symptoms and signs involving the genitourinary system

== ENCOUNTER → 2025-02-20 | Outpatient (REF) | payer MEDICARE, MEDICAID ==
[~2025-02-20] MED LIST changes: -CYCL5TAB PO; +CYCL5TAB4 PO
[2025-02-20 13:53] LABS: ALBUMIN 3.6 G/DL (3.2-5.2); ALKALINE PHOSPHATASE 81 U/L (35-104); ALT/SGPT 30 U/L (7.0-40); AST/SGOT 29 U/L (<34); BILIRUBIN,TOTAL 0.7 MG/DL (0.3-1.2); BLOOD UREA NITROGEN 27 MG/DL (9-23); CALCIUM LEVEL 9.7 MG/DL (8.3-10.6); CARBON DIOXIDE LEVEL 30 MMOL/L (20-31); CHLORIDE LEVEL 100 MMOL/L (98-107); CHOLESTEROL LEVEL 136 MG/DL (<200); CREATININE FOR GFR 0.66 MG/DL (0.55-1.30); GLOMERULAR FILTRATION RATE > 60.0 (>32); GLUCOSE, FASTING 163 MG/DL (74-106); HDL CHOLESTEROL 45.2 MG/DL (>40); LDL CHOLESTEROL 63.8 MG/DL (<100); MAGNESIUM LEVEL 2.2 MG/DL (1.8-2.4); NON-HDL-C 90.8 MG/DL; POTASSIUM SERUM 4.5 MMOL/L (3.5-5.1); SODIUM LEVEL 139 MMOL/L (136-145); TOTAL PROTEIN 7.8 G/DL (5.7-8.2); TRIGLYCERIDES LEVEL 135 MG/DL (<150)
[2025-02-20 14:09] LABS: HEMOGLOBIN A1c 6.8 % (4.0-6.0)
== END ==
LOC: M LAB REF 12:07
PROVIDERS: ATTEND Nurse Practitioner Family
DX: E78.5 Hyperlipidemia, unspecified (principal); I10 Essential (primary) hypertension; E11.9 Type 2 diabetes mellitus without complications

== ENCOUNTER → 2025-07-16 | Outpatient (REF) | payer MEDICARE, MEDICAID ==
[2025-07-16 13:31] LABS: ESTIMATED AVERAGE GLUCOSE 169.0 MG/DL (60-110)
== END ==
LOC: M LAB REF 12:22
PROVIDERS: ATTEND Nurse Practitioner Family
DX: E11.9 Type 2 diabetes mellitus without complications (principal)

== ENCOUNTER → 2025-11-13 | Outpatient (CLI) | payer MEDICARE, MEDICAID ==
[2025-11-13 11:14] LABS: BASO # 0.0 10^3/uL (0.0-0.2); BASO % 0.4 % (0.0-1.0); EOS # 0.1 10^3/uL (0.0-0.5); EOS % 1.5 % (0.0-3.0); LYMPH # 1.6 10^3/uL (1.5-5.0); LYMPH % 31.2 % (24.0-44.0); MONO # 0.4 10^3/uL (0.0-0.8); MONO % 8.0 % (2.0-8.0); NEUTROPHILS # 3.1 10^3/uL (1.5-8.5); NEUTROPHILS % 58.7 % (36.0-66.0); PLATELET COUNT, AUTOMATED 214 10^3/uL (150-450)
[2025-11-13 11:42] LABS: CALCIUM LEVEL 9.1 MG/DL (8.3-10.6); CARBON DIOXIDE LEVEL 30.0 MMOL/L (20-31); CHLORIDE LEVEL 104.0 MMOL/L (98-107); CHOLESTEROL LEVEL 120.0 MG/DL (<200); CHOLESTEROL RISK RATIO 3.14 (<5); CREATININE FOR GFR 0.68 MG/DL (0.55-1.30); GLOMERULAR FILTRATION RATE 84.8 (>32); LDL CHOLESTEROL 59.9 MG/DL (<100); MAGNESIUM LEVEL 2.0 MG/DL (1.8-2.4); NON-HDL-C 81.9 MG/DL; POTASSIUM SERUM 4.4 MMOL/L (3.5-5.1); SODIUM LEVEL 142.0 MMOL/L (136-145); TRIGLYCERIDES LEVEL 110.0 MG/DL (<150)
== END ==
LOC: M LAB 09:50
PROVIDERS: ATTEND Physician Assistant
DX: I50.22 Chronic systolic (congestive) heart failure (principal); E78.00 Pure hypercholesterolemia, unspecified